=== PATIENT | female | born 1975 | race Caucasian/White ===

== ENCOUNTER 2016-12-15 06:20 | Inpatient (IN) | payer MEDICAID ==
[2016-12-15 06:20] VITALS: BMI 43.5
[2016-12-15] MEDS ORDERED: Sodium Chloride 0.9% 1,000 ML ONE ×2 (06:35→10:11)
[2016-12-15 06:53] LABS: BASO # 0.1 K/uL (0.0-0.2); BASO % 0.3 % (0.0-2.0); EOS % 0.2 % (0.0-4.0); HEMATOCRIT 41.7 % (34.0-47.0); LYMPH # 1.7 K/uL (1.0-4.3); LYMPH % 7.4 % (20.0-40.0); MEAN CELL VOLUME 91.5 fL (81.0-99.0); MEAN CORPUSCULAR HEMOGLOBIN 30.5 pg (27.0-31.0); MEAN CORPUSCULAR HGB CONC 33.4 g/dL (33.0-37.0); MONO # 1.4 K/uL (0.0-0.8); MONO % 6.2 % (0.0-10.0); NRBC % 0.1 % (0.0-2.0); PLATELET COUNT 347 K/uL (130-400); RED CELL DISTRIBUTION WIDTH 12.9 % (11.5-14.5)
[2016-12-15 06:57] LABS: WHITE BLOOD COUNT 23.1 K/uL (4.8-10.8)
[2016-12-15] MEDS ORDERED: Sodium Chloride 0.9% 1,000 ML IV ONE ×2 (07:02→17:57)
--- NOTE | 2016-12-15 07:06 | C.PDOC ---
History Of Present Illness 41F c/o RUQ pain constant since tuesday, no exac or reliev fx. says she had similar pain for which she was seen here before and that she was dx w gastritis. +vomiting no diarrhea. Time Seen by Provider: 12/15/16 07:05 Chief Complaint (Nursing): Abdominal Pain Past Medical History Vital Signs: Last Vital Signs Temp 99.3 F 12/15/16 06:29 Pulse 80 12/15/16 08:10 Resp 16 12/15/16 08:10 BP 114/55 L 12/15/16 08:10 Pulse Ox 100 12/15/16 09:25 - Medical History PMH: Arthritis (knees), Gastritis - [facility] Procedures BILAT TUBAL DIVISION NEC (01/12/14) LOCAL DESTR OVA LES NEC (01/12/14) LOW CERVICAL (01/12/14) Family History: States: Other Other Family History: nc - Social History Hx Tobacco Use: No Hx Alcohol Use: No Hx Substance Use: No - Immunization History Hx Tetanus Toxoid Vaccination: No Hx Influenza Vaccination: Yes Hx Pneumococcal Vaccination: No Review Of Systems Constitutional: Negative for: Fever, Weakness Eyes: Negative for: Vision Change Cardiovascular: Negative for: Chest Pain Respiratory: Negative for: Cough, Shortness of Breath Gastrointestinal: Positive for: Nausea, Vomiting, Abdominal Pain. Negative for : Diarrhea Genitourinary: Negative for: Dysuria Physical Exam - Physical Exam Appears: Non-toxic Skin: Warm, Dry Head: Atraumatic Eye(s): bilateral: PERRL Oral Mucosa: Moist Cardiovascular: Rhythm Regular Respiratory: No Decreased Breath Sounds, No Accessory Muscle Use Gastrointestinal/Abdominal: Bowel Sounds, Soft, Tenderness (epigastric pain RUQ) Neurological/Psych: Oriented x3, Other (no focal deficits) ED Course And Treatment - Laboratory Results Result Diagrams: 12/15/16 06:48 12/15/16 06:48 O2 Sat by Pulse Oximetry: 100 Medical Decision Making Medical Decision Makin bedside US shows gallbladder wall edema. kamran burnette surgical instrument mechanic, will come see the pt. [phone] kamran Licona 934 surgery to take to OR this afternoon TECHNIQUE: Sonographic evaluation of the right upper quadrant of the abdomen. FINDINGS: LIVER: Measures 23.7 cm in length. Normal echogenicity of the liver parenchyma. No mass. No intrahepatic bile duct dilatation. GALLBLADDER: Cholelithiasis. Thickened gallbladder wall up to 9 mm. Trace pericholecystic fluid. Positive sonographic Low's sign. Findings are suspicious for acute cholecystitis. COMMON BILE DUCT: Measures 5 mm. No stones. No dilatation. PANCREAS: Unremarkable as visualized. No mass. No ductal dilatation. RIGHT KIDNEY: Measures 12.6 cm in length. Normal echogenicity. No calculus, mass, or hydronephrosis. AORTA: No aneurysmal dilatation. IVC: Unremarkable. OTHER FINDINGS: None . IMPRESSION: Cholelithiasis. Findings suspicious for acute cholecystitis. Hepatomegaly. No evidence of biliary obstruction. Disposition - Disposition Referrals: Non [facility] Provider, [Primary Care Provider] - Disposition: HOSPITALIZED Disposition Time: 07:52 Condition: STABLE - Clinical Impression Clinical Impression: Acute cholecystitis
[2016-12-15 07:19] LABS: NEUTROPHIL 82 % (50-75); POTASSIUM 3.2 mmol/L (3.6-5.2); SODIUM 134 mmol/L (132-148); TOTAL CELLS COUNTED 100
[2016-12-15 07:21] LABS: BILIRUBIN,TOTAL 1.6 mg/dL (0.2-1.3); BLOOD UREA NITROGEN 7 mg/dL (7-17); CARBON DIOXIDE 24 mmol/L (22-30); GFR AFRICAN-AMERICAN > 60
[2016-12-15 07:22] LABS: ALKALINE PHOSPHATASE 80 U/L (38-126); CALCIUM 8.8 mg/dl (8.6-10.4); GLUCOSE,RANDOM 156 mg/dL (65-105)
[2016-12-15] MEDS ORDERED: Morphine 4 MG/ML VIAL ONE ×2 (07:23→08:06)
[2016-12-15 07:32] LABS: CHLORIDE 98 mmol/L (98-107)
[2016-12-15 07:35] LABS: TOTAL PROTEIN 7.8 g/dL (6.3-8.3)
[2016-12-15 07:36] LABS: ALT/SGPT 22 U/L (9-52); AST/SGOT 22 U/L (14-36)
[2016-12-15] MEDS ORDERED: Piperacillin/Tazobact 3.375 GM in Sodium Chloride 100 ML IVPB STA (07:47)
[2016-12-15] MEDS ORDERED: Piperacillin/Tazobact 3.375 gm 100 ML IVPB ONE ×2 (08:07→13:18)
--- NOTE | 2016-12-15 08:17 | CP.PCM.HP ---
History of Present Illness - History of Present Illness History of Present Illness: HPI: Patient is a 41 year old female, with PMHx of gastritis, who presents to [facility] ED for abdominal pain. She reports the pain began Tuesday, while she was visiting a friend's house. She initially dismissed her symptoms as "acid stomach" as she has a history of gastritis. When the pain did not improve throughout the day she went to [facility], where she states "they told me nothing." She was discharged with prescription for pepcid, and reported the pain improved on Tuesday. On Tuesday, the pain returned and she decided to come to the hospital because she was unable to eat. She describes the pain as a constant "dull ache with occasional stabbing", located in her RUQ and radiating to her right shoulder, that is 10/10 at worst on the pain severity scale. It has been made better by the morphine given in ED. She admits associated subjective fever, chills, nausea, and vomiting that began yesterday. She reports vomiting NBNB emesis overnight "more than 5 times." PMHx: gastritis (previous visits to [facility] ED) PSHx: C-sections (3, last in 2014, no complications) Fam Hx: Mother and father: alive; HTN) SHx: Denies ever using tobacco products, denies alcohol and illicit drug use; works as homemaker Allergies: NKA Present on Admission - Present on Admission Any Indicators Present on Admission: No Review of Systems - Constitutional Constitutional: Chills, Fever - EENT Eyes: absent: Blurred Vision, Change in Vision Ears: absent: Decreased Hearing - Cardiovascular Cardiovascular: absent: Chest Pain, Chest Pain at Rest, Dyspnea, Dyspnea on Exertion, Edema - Respiratory Respiratory: absent: Cough, Dyspnea - Gastrointestinal Gastrointestinal: Abdominal Pain (worst RUQ, radiation to right shoulder occasionally), Nausea, Vomiting (multiple, NBNB overnight; now retching). absent: Diarrhea - Genitourinary Genitourinary: absent: Dysuria Past Patient History - Infectious Disease Hx of Infectious Diseases: None - Past Social History Smoking Status: Never Smoked - MUSCULOSKELETAL/RHEUMATOLOGICAL Hx Arthritis: Yes (knees) - GASTROINTESTINAL Hx Gastritis: Yes - GENITOURINARY/GYNECOLOGICAL Hx Urinary Tract Infection: Yes - PSYCHIATRIC Hx Substance Use: No - SURGICAL HISTORY Hx Surgeries: Yes Hx Section: Yes (x2) - ANESTHESIA Hx Anesthesia: Yes Hx Anesthesia Reactions: No Meds Allergies/Adverse Reactions: Allergies Allergy/AdvReac Type Severity Reaction Status Date / Time No Known Allergies Allergy Verified 12/15/16 06:28 Physical Exam - Constitutional Appears: Non-toxic, No Acute Distress - Head Exam Head Exam: ATRAUMATIC, NORMAL INSPECTION, NORMOCEPHALIC - Eye Exam Eye Exam: EOMI Pupil Exam: PERRL - ENT Exam ENT Exam: Mucous Membranes Moist - Respiratory Exam Respiratory Exam: Clear to Auscultation Bilateral, NORMAL BREATHING PATTERN - Cardiovascular Exam Cardiovascular Exam: REGULAR RHYTHM, +S1, +S2 - GI/Abdominal Exam GI & Abdominal Exam: Guarding (RUQ (voluntary)), Soft, Tenderness (worst RQU, positive ramirez sign). absent: Distended, Firm - Extremities Exam Extremities exam: Positive for: normal inspection. Negative for: pedal edema - Back Exam Back exam: absent: CVA tenderness (L), CVA tenderness (R) Additional comments: negative abbie sign - Neurological Exam Neurological exam: Alert, Oriented x3 - Psychiatric Exam Psychiatric exam: Normal Affect, Normal Mood - Skin Skin Exam: Normal Color, Warm Results - Vital Signs Recent Vital Signs: Last Vital Signs Temp 99.3 F 12/15/16 06:29 Pulse 84 12/15/16 07:15 Resp 20 12/15/16 07:15 BP 115/58 L 12/15/16 07:15 Pulse Ox 100 12/15/16 08:00 - Labs Result Diagrams: 12/15/16 06:48 12/15/16 06:48 Labs: Laboratory Results - last 24 hr 12/15/16 12/15/16 06:48 06:48 WBC 23.1 H D RBC 4.56 Hgb 13.9 Hct 41.7 MCV 91.5 MCH 30.5 MCHC 33.4 RDW 12.9 Plt Count 347 MPV 8.0 Neut % (Auto) 85.9 H Lymph % (Auto) 7.4 L Armstrong % (Auto) 6.2 Eos % (Auto) 0.2 Baso % (Auto) 0.3 Neut # 19.9 H Lymph # 1.7 Armstrong # 1.4 H Eos # 0.0 Baso # 0.1 Neutrophils % (Manual) 82 H Band Neutrophils % 3 H Lymphocytes % (Manual) 8 L Monocytes % (Manual) 7 Platelet Estimate Normal Sodium 134 Potassium 3.2 L Chloride 98 Carbon Dioxide 24 Anion Gap 15 BUN 7 Creatinine 0.8 Est GFR ( Amer) > 60 Est GFR (Non-Af Amer) > 60 Random Glucose 156 H Calcium 8.8 Total Bilirubin 1.6 H AST 22 ALT 22 Alkaline Phosphatase 80 Total Protein 7.8 Albumin 3.9 Globulin 3.9 Albumin/Globulin Ratio 1.0 Lipase 73 Assessment & Plan - Assessment and Plan (Free Text) Assessment: 41 year old female, with PMHx of gastritis, who presents to ED for RUQ abdominal pain. US at bedside showing GB wall thickening. Official US report: concerning for acute cholecystitis. Lap Sharon scheduled for today (12/15/16) Plan: US GB: acute cholecystitis OR Lap Sharon for this afternoon Morphine for pain control IVF f/u Pre-op labs, EKG, CXR Surgical team Carmencita Hunt, PGY-1
[2016-12-15 08:34] LABS: RBC URINE 2 /hpf (0-3); URINE BILIRUBIN NEGATIVE (NEGATIVE); URINE BLOOD NEGATIVE (NEGATIVE); URINE COLOR Yellow (YELLOW); URINE GLUCOSE (UA) NORMAL (Normal); URINE KETONE 2+ mg/dL (NEGATIVE); URINE LEUKOCYTE ESTERASE NEG Leu/uL (Negative); URINE PROTEIN 1+ mg/dL (NEGATIVE); WBC URINE 2 /hpf (0-5)
--- NOTE | 2016-12-15 09:19 | US ---
HISTORY: ruq pain COMPARISON: None. TECHNIQUE: Sonographic evaluation of the right upper quadrant of the abdomen. FINDINGS: LIVER: Measures 23.7 cm in length. Normal echogenicity of the liver parenchyma. No mass. No intrahepatic bile duct dilatation. GALLBLADDER: Cholelithiasis. Thickened gallbladder wall up to 9 mm. Trace pericholecystic fluid. Positive sonographic Low's sign. Findings are suspicious for acute cholecystitis. COMMON BILE DUCT: Measures 5 mm. No stones. No dilatation. PANCREAS: Unremarkable as visualized. No mass. No ductal dilatation. RIGHT KIDNEY: Measures 12.6 cm in length. Normal echogenicity. No calculus, mass, or hydronephrosis. AORTA: No aneurysmal dilatation. IVC: Unremarkable. OTHER FINDINGS: None . IMPRESSION: Cholelithiasis. Findings suspicious for acute cholecystitis. Hepatomegaly. No evidence of biliary obstruction.
[2016-12-15] MEDS ORDERED: Morphine 4 MG/ML VIAL IVP PRN (09:36)
[2016-12-15] MEDS ORDERED: Sodium Chloride 0.9% 1,000 ML IV SCH (09:45)
[2016-12-15] MEDS ORDERED: HYDROmorphone 1 mg/ml ISec IVP STA (09:46)
[2016-12-15] MEDS ORDERED: HYDROmorphone 1 mg/ml ISec ONE (10:11)
[2016-12-15 12:02] LABS: INR 1.4
[2016-12-15] MEDS ORDERED: Propofol 10 mg/ml Inj (20 ML) ONE (13:12)
[2016-12-15] MEDS ORDERED: Midazolam 2 MG/2 ML VIAL ONE ×3 (13:13→18:36)
[2016-12-15] MEDS ORDERED: Lactated Ringer's 1,000 ML IV ONE ×7 (13:20→19:43)
[2016-12-15] MEDS: Piperacillin/Tazobact 3.375 GM in Sodium Chloride 100 ML IVPB SCH ×2 (13:25→20:30)
[2016-12-15] MEDS ORDERED: HYDROmorphone 0.5 mg/0.5 ml ISec IVP PRN (13:34)
--- NOTE | 2016-12-15 15:10 | PCM.SURG1 ---
Surgeon's Initial Post Op Note - Surgeon's Notes Surgeon: Livan Employee Communications Specialist: Charlie PGY2 Type of Anesthesia: General Endo Pre-Operative Diagnosis: Cholecystitis Operative Findings: acutely inflamed gallbladder Post-Operative Diagnosis: same Operation Performed: laparoscopic cholecystectomy Specimen/Specimens Removed: gallbladder Estimated Blood Loss: EBL {In ML}: 50 Blood Products Given: N/A Drains Used: No Drains Post-Op Condition: Good Date of Surgery/Procedure: 12/15/16 Time of Surgery/Procedure: 15:10
[2016-12-15] MEDS ORDERED: Oxycodone/Acetaminophen 5/325 mg Tab PO PRN (15:14)
[2016-12-15 17:18] LABS: BASO % 0.1 % (0.0-2.0); EOS % 0.1 % (0.0-4.0); HEMATOCRIT 28.7 % (34.0-47.0); LYMPH # 0.9 K/uL (1.0-4.3); LYMPH % 5.5 % (20.0-40.0); MEAN CELL VOLUME 92.8 fL (81.0-99.0); MEAN CORPUSCULAR HEMOGLOBIN 31.7 pg (27.0-31.0); MEAN CORPUSCULAR HGB CONC 34.2 g/dL (33.0-37.0); MEAN PLATELET VOLUME 7.9 fL (7.2-11.7); MONO # 0.6 K/uL (0.0-0.8); MONO % 3.6 % (0.0-10.0); PLATELET COUNT 303 K/uL (130-400); RED CELL DISTRIBUTION WIDTH 12.9 % (11.5-14.5); WHITE BLOOD COUNT 16.2 K/uL (4.8-10.8)
[2016-12-15 17:19] LABS: CHLORIDE 100 mmol/L (98-107)
[2016-12-15 17:20] LABS: POTASSIUM 3.8 mmol/L (3.6-5.2); SODIUM 133 mmol/L (132-148)
[2016-12-15 17:22] LABS: ALB/GLOB RATIO 0.9 (1.0-2.1); AST/SGOT 33 U/L (14-36); BLOOD UREA NITROGEN 10 mg/dL (7-17); CARBON DIOXIDE 26 mmol/L (22-30); GFR AFRICAN-AMERICAN > 60; TOTAL PROTEIN 5.8 g/dL (6.3-8.3)
[2016-12-15 17:23] LABS: ALKALINE PHOSPHATASE 57 U/L (38-126); ALT/SGPT 32 U/L (9-52); CALCIUM 7.2 mg/dl (8.6-10.4); GLUCOSE,RANDOM 175 mg/dL (65-105)
[2016-12-15 18:03] LABS: TOTAL CELLS COUNTED 100
[2016-12-15 18:04] LABS: NEUTROPHIL 88 % (50-75)
[2016-12-15] MEDS ORDERED: Etomidate 20 mg/10ml Inj IV ONE (18:23)
[2016-12-15] MEDS ORDERED: Ketamine 50 mg/ml Inj (10 ml) ONE (18:23)
[2016-12-15] MEDS ORDERED: Sodium Chloride 0.9% 500 ML IV ONE ×4 (18:30→18:40)
[2016-12-15 18:54] LABS: URINE BACTERIA OCC (<OCC); URINE BILIRUBIN NEGATIVE (NEGATIVE); URINE BLOOD NEGATIVE (NEGATIVE); URINE COLOR Amber (YELLOW); URINE GLUCOSE (UA) 1+ mg/dL (Normal); URINE KETONE TRACE mg/dL (NEGATIVE); URINE LEUKOCYTE ESTERASE NEG Leu/uL (Negative); URINE PROTEIN 2+ mg/dL (NEGATIVE); URINE UROBILINOGEN NORMAL mg/dL (0.2-1.0)
--- NOTE | 2016-12-15 20:28 | PCM.SURG1 ---
Surgeon's Initial Post Op Note - Surgeon's Notes Surgeon: Livan Early Childhood Director: Charlie PGY2, Sally PGY1, Eliazar PGY2 Type of Anesthesia: General Endo Pre-Operative Diagnosis: Post-operative bleeding Operative Findings: hemoperitoneum, 3L of clot evacuated from abd, no definite source of bleeding identified Post-Operative Diagnosis: hemoperitoneum Operation Performed: ex-lap, evacuation of clot, ligation of port sites Specimen/Specimens Removed: none Estimated Blood Loss: EBL {In ML}: 10 Blood Products Given: PRBC (4 Units), FFP (2 Units and 1 Unit cryopercipitate) Drains Used: Alejandro Post-Op Condition: Fair Date of Surgery/Procedure: 12/15/16 Time of Surgery/Procedure: 20:30
[2016-12-15 20:55] LABS: DRAW SITE ALINE
[2016-12-15] MEDS ORDERED: Albumin Human 25% (12.5 gm/50 ml) IV ONE (20:58)
[2016-12-15 21:09] LABS: BASO % 0.1 % (0.0-2.0); HEMATOCRIT 27.8 % (34.0-47.0); LYMPH # 0.8 K/uL (1.0-4.3); LYMPH % 6.8 % (20.0-40.0); MEAN CORPUSCULAR HEMOGLOBIN 30.1 pg (27.0-31.0); MEAN CORPUSCULAR HGB CONC 33.5 g/dL (33.0-37.0); MEAN PLATELET VOLUME 7.9 fL (7.2-11.7); MONO # 0.5 K/uL (0.0-0.8); MONO % 3.9 % (0.0-10.0); RED CELL DISTRIBUTION WIDTH 15.3 % (11.5-14.5); WHITE BLOOD COUNT 11.9 K/uL (4.8-10.8)
[2016-12-15 21:11] LABS: MEAN CELL VOLUME 89.9 fL (81.0-99.0)
[2016-12-15 21:13] LABS: CHLORIDE 102 mmol/L (98-107); INR 1.6; POTASSIUM 3.6 mmol/L (3.6-5.2); SODIUM 133 mmol/L (132-148)
[2016-12-15 21:15] LABS: GFR AFRICAN-AMERICAN > 60
[2016-12-15 21:16] LABS: ALB/GLOB RATIO 0.9 (1.0-2.1); ALKALINE PHOSPHATASE 38 U/L (38-126); ALT/SGPT 52 U/L (9-52); AST/SGOT 68 U/L (14-36); BILIRUBIN,TOTAL 3.3 mg/dL (0.2-1.3); BLOOD UREA NITROGEN 10 mg/dL (7-17); CARBON DIOXIDE 23 mmol/L (22-30); GLUCOSE,RANDOM 180 mg/dL (65-105); PHOSPHOROUS 2.8 mg/dL (2.5-4.5); TOTAL PROTEIN 4.5 g/dL (6.3-8.3)
[2016-12-15 21:17] LABS: CALCIUM 6.4 mg/dl (8.6-10.4); MAGNESIUM 1.9 mg/dL (1.6-2.3)
--- NOTE | 2016-12-15 21:23 | OP ---
PROCEDURE DATE: 12/15/2016 SURGEON: Dr. Licona. CHILD DAY CARE TEACHER: Dr. Guerra, Dr. Zavala and Dr. Perea. ANESTHESIA: General, Dr. Jackson. PREOPERATIVE DIAGNOSIS: Hemoperitoneum status post laparoscopic cholecystectomy. POSTOPERATIVE DIAGNOSIS: Hemoperitoneum status post laparoscopic cholecystectomy. PROCEDURE: Exploratory laparotomy, evacuation of clot, suture ligation of port site. DESCRIPTION OF OPERATION: With the patient in the supine position under adequate general anesthesia, the abdomen was prepped and draped in the usual sterile manner. The patient was recently status pos t laparoscopic cholecystectomy and became acutely hypotensive approximately 2 hours after coming to [facility] recovery room, whereupon she was brought back to the operating room. An upper midline incision wa s made, taken down through the subcutaneous tissue and the peritoneum was entered in the midline. Bl eeding from the edge of the midline incision was suture ligated with a 0 Vicryl suture. There was no svitlana to be a large amount of clots in all quadrants of the abdomen and clot and liquified blood were e vacuated. A total of approximately 3 liters of clot and liquid blood. When this was completed, init ially, the abdominal port site was examined as there was some suspicion that bleeding had occurred th ere during removal of the gallbladder. No acute bleeding was noted at that site. The area of the ri ght upper quadrant liver bed and cystic vessels were identified and no acute bleeding was identified in that area as well. The epigastric port site also was examined. No acute bleeding was identified, although there was a small amount of swelling and ecchymosis in the falciform ligament and the epiga stric port site was suture ligated with a [id number] suture from within the peritoneal cavity us ing a 0 Vicryl suture as well. When this had been completed, all quadrants of the abdomen were caref ully examined including the liver bed, the liver edges, the omentum that had been divided or peeled a way to expose the gallbladder during the earlier cholecystectomy and no definite source of bleeding w as identified. The patient at this point had been fully resuscitated by anesthesia with blood pressu res in the 110 - 120 range and all quadrants were again inspected and again no definite source of ble eding was identified. At this point, Surgicel was placed in the area of the liver bed and a 19 Alejandro drain was placed in the right gutter and extended up into the subhepatic space and brought out throu gh one of the lateral port sites. The abdomen was then closed with running suture of double stranded #1 PDS. The skin was closed with dru. Dry sterile dressings were applied. The patient tolerat ed the procedure well and transferred to the intensive care unit in fair, but stable condition. There was minimal acute blood loss during the surgery but an estimated evacuation of 3 liters of hemo peritoneum and clot and the patient received a total of 4 units of packed red blood cells in the pre and intraoperative period as well as 2 units of fresh frozen plasma and 1 unit of cryoprecipitate. Momo Licona MD cc: 58 TT: 12/15/2016 21:22:55 jn
[2016-12-15] MEDS: Lactated Ringer's 1,000 ML IV SCH (21:36)
--- NOTE | 2016-12-15 21:46 | OP ---
PROCEDURE DATE: 12/15/2016 SURGEON: Dr. Licona. MILITARY COOK: Dr. Vega. ANESTHESIA: General, ELENA Pressley and Dr. Smith. PREOPERATIVE DIAGNOSIS: Cholecystitis. POSTOPERATIVE DIAGNOSIS: Acute cholecystitis. PROCEDURE: Laparoscopic cholecystectomy. DESCRIPTION OF OPERATION: With the patient in the supine position under adequate general anesthesia, the abdomen was prepped and draped in the usual sterile manner. Veress needle puncture was performe d at the umbilicus with insufflation to 15 cm water pressure of CO2 and a 10 mm laparoscopic trocar w as inserted via an infraumbilical incision. Under direct vision, additional trocars were inserted in the epigastrium and right costal margin. The gallbladder was visualized. It was noted to be disten ded and thickened with adherent omentum covering most of the surface of the gallbladder. The gallbla dder was aspirated of 60 mL of dark brown bile, allowing a portion of the fundus to be grasped and el evated and the adherent omentum was peeled away and cut from areas where it was adhered to the liver, primarily peeled off the surface of the gallbladder down to expose the infundibulum. The infundibul um was grasped and retracted laterally and the cystic artery was dissected and cleared down toward th e junction with the common bile duct. The cystic duct was fully cleared anteriorly and posteriorly o f a very thickened overlying peritoneum and then triply clipped and divided closer to the gallbladder . Anterior and posterior branches of the cystic artery were identified in addition what appeared to be a large right hepatic artery was noted passing beneath the area of the gallbladder and that was ca refully preserved. The gallbladder was dissected free of the liver bed using electrocautery. The li napoleon bed was markedly edematous consistent with very acute cholecystitis. The liver bed was examined for hemostasis and the dissection was completed. The gallbladder was placed in a specimen retrieval bag and removed via the umbilical port site, which was enlarged to accommodate the large stones and t hickened gallbladder. The right upper quadrant was irrigated and suctioned. The pneumoperitoneum wa s released and the trocars were removed. The umbilical port site was closed transversely with a runn ing suture of 0 Vicryl to approximate the fascia and all incisions were closed with 4-0 Monocryl subc uticular sutures and Steri-Strips. Dry sterile dressings were applied. The patient tolerated the pr ocedure well and transferred to recovery room in stable condition. Estimated blood loss for the proc edure was 50 mL. Momo Licona MD cc: 58 TT: 12/15/2016 21:46:04 mn
[2016-12-15 21:52] LABS: THYROID STIMULATING HORMONE 0.91 mIU/L (0.46-4.68)
--- NOTE | 2016-12-15 22:31 | CP.PCM.CON ---
History of Present Illness - History of Present Illness History of Present Illness: Chief complaint: Postoperative History present illness: 41-year-old female history of gastritis admitted to the hospital with acute abdominal pain. Patient was seen by surgery today. Following that patient was diagnosed with the possible acute cholecystitis. Patient was taken to the operating room, initially underwent laparoscopic cholecystectomy. After the surgery patient was observed in the PACU, with intravenous patient started becoming severely hypertensive, and the blood count dropped from 13-to 9. Patient was immediately taken to the operating room, because of failure to improve with the resuscitation. In the overall patient had exploration, at least 3lts of blood clots removed, patient was given 4 units of PRBC, 2 FFP and cryo-IV fluids. Patient was brought to the ICU after extubation. During the operating room urine output was on the low side. Patient has a line. Currently the blood pressure is on the low side, 107/55. Patient is awake, responding, no abdominal pain at this time, no vomiting noted. Patient moving all 4 extremities. She's not in any distress at this time Past medical history: Gastritis Surgical history Family history noncontributory Surgical history Social history no drugs Allergy no known drug allergy Review of system: Patient is currently awake and responding temperature is improving abdominal pain minimally noted patient is pale looking but comfortable at this time Vital signs reviewed No neck vein distention noted Chest good air entry bilaterally, no wheezing or rales noted CVS regular heart sound, no murmur noted Postoperative abdomen drainage for your okay Extremities no pedal edema [employer] TECHNOLOGIST alert awake oriented 3, no functional neurological deficit ABG, repeat labs reviewed Hemoglobin is stable. INR is 1.6. Patient is normal Assessment and recommendation: 41-year-old female with history of gastritis admitted with the status post a cholecystectomy, hemorrhagic shock complicated. Status post a exploration revision. During the exploration and there was no clear bleeding episode identified but extensive inspection could not found any bleeding but there was no active bleeding after resuscitation.. Patient now slowly improving. Lactic acid is normal, urine output is improving. Given the elevated INR we'll do 2 more units of FFP. And gently hydrate the patient. Close monitoring. Evaluate for drop in hemoglobin. Spoke to the surgery. Family was at bedside. Past Patient History - Infectious Disease Hx of Infectious Diseases: None - Past Medical History & Family History Past Medical History?: Yes - Past Social History Smoking Status: Never Smoked - MUSCULOSKELETAL/RHEUMATOLOGICAL Hx Arthritis: Yes (knees) Hx Falls: No - GASTROINTESTINAL Hx Gastritis: Yes - GENITOURINARY/GYNECOLOGICAL Hx Urinary Tract Infection: Yes - PSYCHIATRIC Hx Substance Use: No - SURGICAL HISTORY Hx Surgeries: Yes Hx Section: Yes (x2) - ANESTHESIA Hx Anesthesia: Yes Hx Anesthesia Reactions: No Meds Allergies/Adverse Reactions: Allergies Allergy/AdvReac Type Severity Reaction Status Date / Time No Known Allergies Allergy Verified 12/15/16 06:28 - Medications Medications: Current Medications Docusate Sodium (Colace) 100 mg PO TID [facility] Last Admin: 12/15/16 21:22 Dose: Not Given Hydromorphone HCl (Dilaudid) 0.5 mg IVP Q3 PRN PRN Reason: Pain, moderate (4-7) Piperacillin Sod/Tazobactam (Sod 3.375 gm/ Sodium Chloride) 100 mls @ 200 mls/ hr IVPB Q6H [facility] Last Admin: 12/15/16 20:30 Dose: Not Given Lactated Ringer's (Lactated Ringer's) 1,000 mls @ 250 mls/hr IV .Q4H [facility] Stop: 12/16/16 04:59 Last Admin: 12/15/16 21:36 Dose: 250 mls/hr Ondansetron HCl (Zofran Inj) 4 mg IVP Q4 PRN PRN Reason: Nausea/Vomiting Pantoprazole Sodium (Protonix Inj) 40 mg IVP DAILY [facility] Pneumococcal Polyvalent Vaccine (Pneumovax 23 Vaccine) 0.5 ml IM .ONCE ONE Stop: 12/17/16 14:25 Results - Vital Signs Recent Vital Signs: Last Vital Signs Temp 99 F 12/15/16 15:10 Pulse 94 H 12/15/16 18:20 Resp 19 12/15/16 18:20 BP 87/31 L 12/15/16 18:20 Pulse Ox 97 12/15/16 18:20 - Labs Result Diagrams: 12/15/16 20:58 12/15/16 20:58 Labs: Laboratory Results - last 24 hr 12/15/16 12/15/16 12/15/16 11:43 17:09 17:09 WBC 16.2 H RBC 3.10 L Hgb 9.8 L D Hct 28.7 L MCV 92.8 MCH 31.7 H MCHC 34.2 RDW 12.9 Plt Count 303 MPV 7.9 Neut % (Auto) 90.7 H Lymph % (Auto) 5.5 L [place] % (Auto) 3.6 Eos % (Auto) 0.1 Baso % (Auto) 0.1 Neut # 14.7 H Lymph # 0.9 L [place] # 0.6 Eos # 0.0 Baso # 0.0 Neutrophils % (Manual) 88 H Band Neutrophils % 1 Lymphocytes % (Manual) 6 L Monocytes % (Manual) 5 Platelet Estimate Normal RBC Morphology Normal PT 15.9 H INR 1.4 APTT 31 Puncture Site pCO2 pO2 HCO3 ABG pH ABG Total CO2 ABG O2 Saturation ABG Base Excess Benitez Test ABG Potassium A-a O2 Difference Respiratory Index Glucose Lactate FiO2 Sodium Potassium Chloride Carbon Dioxide Anion Gap BUN Creatinine Est GFR ( Amer) Est GFR (Non-Af Amer) Random Glucose Calcium Phosphorus Magnesium Total Bilirubin AST ALT Alkaline Phosphatase Total Protein Albumin Globulin Albumin/Globulin Ratio TSH 3rd Generation Plasma Cortisol PM Arterial Blood Potassium Urine Color Urine Clarity Urine pH Ur Specific Bandy Urine Protein Urine Glucose (UA) Urine Ketones Urine Blood Urine Nitrate Urine Bilirubin Urine Urobilinogen Ur Leukocyte Esterase Ur Squamous Epith Cells Urine Bacteria Blood Type A POSITIVE Antibody Screen Negative 12/15/16 12/15/16 12/15/16 17:09 17:50 18:33 WBC RBC Hgb Hct MCV MCH MCHC RDW Plt Count MPV Neut % (Auto) Lymph % (Auto) [place] % (Auto) Eos % (Auto) Baso % (Auto) Neut # Lymph # [place] # Eos # Baso # Neutrophils % (Manual) Band Neutrophils % Lymphocytes % (Manual) Monocytes % (Manual) Platelet Estimate RBC Morphology PT INR APTT Puncture Site Laline pCO2 37 pO2 143 H HCO3 24.8 ABG pH 7.42 ABG Total CO2 25.1 ABG O2 Saturation 100.2 H ABG Base Excess -0.2 Benitez Test Na ABG Potassium 3.7 A-a O2 Difference 67.0 Respiratory Index 0.5 Glucose 157 H Lactate 2.1 FiO2 36.0 Sodium 133 135.0 Potassium 3.8 Chloride 100 109.0 H Carbon Dioxide 26 Anion Gap 10 BUN 10 Creatinine 1.0 Est GFR ( Amer) > 60 Est GFR (Non-Af Amer) > 60 Random Glucose 175 H Calcium 7.2 L Phosphorus Magnesium Total Bilirubin 2.0 H AST 33 ALT 32 Alkaline Phosphatase 57 Total Protein 5.8 L Albumin 2.7 L D Globulin 3.1 Albumin/Globulin Ratio 0.9 L TSH 3rd Generation Plasma Cortisol PM Arterial Blood Potassium 3.7 Urine Color Colette Urine Clarity Hazy Urine pH 5.0 Ur Specific Bandy 1.032 H Urine Protein 2+ H Urine Glucose (UA) 1+ Urine Ketones Trace Urine Blood Negative Urine Nitrate Negative Urine Bilirubin Negative Urine Urobilinogen Normal Ur Leukocyte Esterase Neg Ur Squamous Epith Cells 2 Urine Bacteria Occ H Blood Type Antibody Screen 12/15/16 12/15/16 12/15/16 20:50 20:58 20:58 WBC 11.9 H RBC 3.09 L Hgb 9.3 L Hct 27.8 L MCV 89.9 D MCH 30.1 MCHC 33.5 RDW 15.3 H Plt Count 151 D MPV 7.9 Neut % (Auto) 89.2 H Lymph % (Auto) 6.8 L [place] % (Auto) 3.9 Eos % (Auto) 0.0 Baso % (Auto) 0.1 Neut # 10.7 H Lymph # 0.8 L [place] # 0.5 Eos # 0.0 Baso # 0.0 Neutrophils % (Manual) Band Neutrophils % Lymphocytes % (Manual) Monocytes % (Manual) Platelet Estimate RBC Morphology PT INR APTT Puncture Site Phylicia pCO2 39 pO2 64 L HCO3 23.4 ABG pH 7.38 ABG Total CO2 24.3 ABG O2 Saturation 97.5 ABG Base Excess -1.8 Benitez Test Na ABG Potassium 3.5 L A-a O2 Difference 37.0 Respiratory Index 0.6 Glucose 188 H Lactate 1.9 FiO2 21.0 Sodium 135.0 133 Potassium 3.6 Chloride 108.0 H 102 Carbon Dioxide 23 Anion Gap 11 BUN 10 Creatinine 0.8 Est GFR ( Amer) > 60 Est GFR (Non-Af Amer) > 60 Random Glucose 180 H Calcium 6.4 L Phosphorus 2.8 Magnesium 1.9 Total Bilirubin 3.3 H AST 68 H D ALT 52 D Alkaline Phosphatase 38 D Total Protein 4.5 L Albumin 2.1 L D Globulin 2.4 Albumin/Globulin Ratio 0.9 L TSH 3rd Generation 0.91 Plasma Cortisol PM 22.1 H Arterial Blood Potassium 3.5 L Urine Color Urine Clarity Urine pH Ur Specific Bandy Urine Protein Urine Glucose (UA) Urine Ketones Urine Blood Urine Nitrate Urine Bilirubin Urine Urobilinogen Ur Leukocyte Esterase Ur Squamous Epith Cells Urine Bacteria Blood Type Antibody Screen 12/15/16 20:58 WBC RBC Hgb Hct MCV MCH MCHC RDW Plt Count MPV Neut % (Auto) Lymph % (Auto) [place] % (Auto) Eos % (Auto) Baso % (Auto) Neut # Lymph # [place] # Eos # Baso # Neutrophils % (Manual) Band Neutrophils % Lymphocytes % (Manual) Monocytes % (Manual) Platelet Estimate RBC Morphology PT 18.2 H INR 1.6 APTT 30 Puncture Site pCO2 pO2 HCO3 ABG pH ABG Total CO2 ABG O2 Saturation ABG Base Excess Benitez Test ABG Potassium A-a O2 Difference Respiratory Index Glucose Lactate FiO2 Sodium Potassium Chloride Carbon Dioxide Anion Gap BUN Creatinine Est GFR ( Amer) Est GFR (Non-Af Amer) Random Glucose Calcium Phosphorus Magnesium Total Bilirubin AST ALT Alkaline Phosphatase Total Protein Albumin Globulin Albumin/Globulin Ratio TSH 3rd Generation Plasma Cortisol PM Arterial Blood Potassium Urine Color Urine Clarity Urine pH Ur Specific Bandy Urine Protein Urine Glucose (UA) Urine Ketones Urine Blood Urine Nitrate Urine Bilirubin Urine Urobilinogen Ur Leukocyte Esterase Ur Squamous Epith Cells Urine Bacteria Blood Type Antibody Screen
[2016-12-16] MEDS: Lactated Ringer's 1,000 ML IV SCH ×5 (00:46→23:50)
[2016-12-16] MEDS: Piperacillin/Tazobact 3.375 GM in Sodium Chloride 100 ML IVPB SCH ×4 (02:04→20:58)
[2016-12-16 06:16] LABS: BASO % 0.3 % (0.0-2.0); HEMATOCRIT 22.8 % (34.0-47.0); LYMPH # 1.3 K/uL (1.0-4.3); LYMPH % 12.2 % (20.0-40.0); MEAN CELL VOLUME 89.5 fL (81.0-99.0); MEAN CORPUSCULAR HEMOGLOBIN 30.5 pg (27.0-31.0); MEAN CORPUSCULAR HGB CONC 34.1 g/dL (33.0-37.0); MEAN PLATELET VOLUME 8.8 fL (7.2-11.7); MONO # 0.8 K/uL (0.0-0.8); MONO % 7.5 % (0.0-10.0); RED CELL DISTRIBUTION WIDTH 15.5 % (11.5-14.5); WHITE BLOOD COUNT 10.5 K/uL (4.8-10.8)
[2016-12-16 06:24] LABS: INR 1.4
[2016-12-16 06:36] LABS: CHLORIDE 102 mmol/L (98-107); POTASSIUM 3.6 mmol/L (3.6-5.2); SODIUM 134 mmol/L (132-148)
[2016-12-16 06:38] LABS: BILIRUBIN,TOTAL 2.6 mg/dL (0.2-1.3); CARBON DIOXIDE 26 mmol/L (22-30); GFR AFRICAN-AMERICAN > 60
[2016-12-16 06:39] LABS: ALKALINE PHOSPHATASE 44 U/L (38-126); ALT/SGPT 45 U/L (9-52); AST/SGOT 50 U/L (14-36); BLOOD UREA NITROGEN 11 mg/dL (7-17); GLUCOSE,RANDOM 115 mg/dL (65-105); TOTAL PROTEIN 4.9 g/dL (6.3-8.3)
[2016-12-16] MEDS: HYDROmorphone 0.5 mg/0.5 ml ISec IVP PRN ×3 (07:02→17:48)
[2016-12-16] MEDS ORDERED: Phytonadione 10 mg/ml Inj (Adult) IV STA (10:25)
--- NOTE | 2016-12-16 10:32 | CP.PCM.PN ---
Subjective - Date & Time of Evaluation Date of Evaluation: 12/16/16 Time of Evaluation: 10:28 - Subjective Subjective: Surgery: Dr. Licona Pt seen and examined. Resting comfortably in bed. Overnight pt received a total of 4 Units PRBCs, 4 Units FFP, and 1 Unit cryopercipitate. Vitals have improved and are stable. Immediate CBC post-op showed stable hgb of 9.8 w. slight decrease to 7.3 this AM. Pt is doing well. She states that her pain is controlled. She denies N/V. No F/C. Objective - Vital Signs/Intake and Output Vital Signs (last 24 hours): Temp Pulse Resp BP Pulse Ox 98.7 F 96 H 16 107/71 99 12/16/16 08:00 12/16/16 10:00 12/16/16 10:00 12/16/16 10:00 12/16/16 10:00 Intake and Output: 12/16/16 12/16/16 06:59 18:59 Intake Total 3267 600 Output Total 725 360 Balance 2542 240 - Medications Medications: Current Medications Docusate Sodium (Colace) 100 mg PO TID [facility] Last Admin: 12/15/16 21:22 Dose: Not Given Hydromorphone HCl (Dilaudid) 0.5 mg IVP Q3 PRN PRN Reason: Pain, moderate (4-7) Last Admin: 12/16/16 10:12 Dose: 0.5 mg Piperacillin Sod/Tazobactam (Sod 3.375 gm/ Sodium Chloride) 100 mls @ 200 mls/ hr IVPB Q6H [facility] Last Admin: 12/16/16 08:07 Dose: 200 mls/hr Lactated Ringer's (Lactated Ringer's) 1,000 mls @ 125 mls/hr IV .Q8H [facility] Last Admin: 12/16/16 08:08 Dose: 125 mls/hr Ondansetron HCl (Zofran Inj) 4 mg IVP Q4 PRN PRN Reason: Nausea/Vomiting Pantoprazole Sodium (Protonix Inj) 40 mg IVP DAILY [facility] Last Admin: 12/16/16 10:12 Dose: 40 mg Phytonadione (Vitamin K Inj) 10 mg IV STAT STA Stop: 12/16/16 10:26 Pneumococcal Polyvalent Vaccine (Pneumovax 23 Vaccine) 0.5 ml IM .ONCE ONE Stop: 12/17/16 14:25 - Labs Labs: 12/16/16 06:09 12/16/16 06:09 PT 16.2 SECONDS (9.7-12.2) H 12/16/16 06:09 INR 1.4 12/16/16 06:09 APTT 23 SECONDS (21-34) D 12/16/16 06:09 - Constitutional Appears: Non-toxic, No Acute Distress - Head Exam Head Exam: ATRAUMATIC, NORMOCEPHALIC - Eye Exam Eye Exam: EOMI - ENT Exam ENT Exam: Mucous Membranes Moist - Neck Exam Neck Exam: Full ROM - Respiratory Exam Respiratory Exam: NORMAL BREATHING PATTERN. absent: Accessory Muscle Use, Respiratory Distress - GI/Abdominal Exam GI & Abdominal Exam: Soft, Tenderness (mild alec-incisional ). absent: Distended, Firm, Guarding, Rigid, Rebound Additional comments: Dressing in place, C/D/I R mid abd alejandro in place - Extremities Exam Extremities Exam: absent: Calf Tenderness, Pedal Edema - Neurological Exam Neurological Exam: Alert, Awake, Oriented x3 Assessment and Plan - Assessment and Plan (Free Text) Assessment: 41F w. cholecystitis s/p lap nova w. subsequent ex-lap for post-operative bleeding, POD#1 -AM Hgb 7.8, will repeat CBC/coags this afternoon, transfuse PRN -INR 1.4, will give IV vit K -Alejandro: 40cc/12 hr sanguinous, will continue to monitor -Minimal NGT output, will D/C and start CLD, monitor bowel FXN and ADAT -Per nursing, [place] output 1100cc since surgery, will D/C -Recommend keep A-line until no further decrease in H/H -continue w. abx -hold anticoagulation -OOB and IS use -will consult PT -will continue to follow closely -d/w attending Charlie PGY2
--- NOTE | 2016-12-16 16:10 | CP.CCUPN ---
<Rolly Dean - Last Filed: 12/16/16 16:05> CCU Subjective - Physician Review Subjective (Free Text): 12/16/16 16:05 PGY-1 ICU progress note Pt seen and examined at bedside. Pt up and OOB to chair. Complains of abdominal pain. Denies chest pain, sob, nausea, vomiting. Admits to dizziness when transferring. Critical Care Time Spent (in minutes): 35 CCU Objective - Vital Signs / Intake & Output Vital Signs (Last 4 hours): Vital Signs Pulse Resp BP Pulse Ox 12/16/16 13:00 82 16 106/81 100 Intake and Output (Last 8hrs): Intake & Output 12/16/16 12/16/16 12/16/16 06:59 14:59 22:59 Intake Total 2040 975 Output Total 575 485 Balance 1465 490 Intake: Intake, IV Amount 2040 975 right AC 1940 975 right AC side port 100 Oral 0 0 Output: Drainage 40 right abdomen 40 Urine 535 485 Urethral ([place]) 535 485 Other: # Bowel Movements 0 0 - Physical Exam Head: Positive for: Atraumatic, Normocephalic Pupils: Positive for: PERRL Mouth: Positive for: Moist Mucous Membranes Respiratory/Chest: Positive for: Clear to Auscultation, Good Air Exchange Cardiovascular: Positive for: Normal S1, S2 Abdomen: Positive for: Tenderness, Normal Bowel Sounds, Other (bandages in place , C/D/I). Negative for: Distention Upper Extremity: Positive for: NORMAL PULSES Lower Extremity: Positive for: NORMAL PULSES Neurological: Positive for: Speech Normal Skin: Positive for: Warm, Dry Psychiatric: Positive for: Alert, Oriented x 3 - Medications Active Medications: Active Medications Generic Name Dose Route Start Last Admin Trade Name Freq PRN Reason Stop Dose Admin Docusate Sodium 100 mg 12/15/16 18:00 12/16/16 14:05 Colace PO 100 mg TID JACK Administration Hydromorphone HCl 0.5 mg 12/15/16 20:32 12/16/16 10:12 Dilaudid IVP 0.5 mg Q3 PRN Administration Pain, moderate (4-7) Piperacillin Sod/Tazobactam 100 mls @ 200 mls/hr 12/15/16 14:00 12/16/16 08: 07 Sod 3.375 gm/ Sodium Chloride IVPB 12/16/16 23:59 200 mls/hr Q6H JACK Administration Lactated Ringer's 1,000 mls @ 125 mls/hr 12/16/16 07:10 12/16/16 08:08 Lactated Ringer's IV 125 mls/hr .Q8H JACK Administration Ondansetron HCl 4 mg 12/15/16 09:37 Zofran Inj IVP Q4 PRN Nausea/Vomiting Pantoprazole Sodium 40 mg 12/16/16 10:00 12/16/16 10:12 Protonix Inj IVP 40 mg DAILY JACK Administration Pneumococcal Polyvalent Vaccine 0.5 ml 12/17/16 14:24 Pneumovax 23 Vaccine IM 12/17/16 14:25 .ONCE ONE - Patient Studies Lab Studies: Lab Studies 12/16/16 12/16/16 12/16/16 Range/Units 06:09 06:09 06:09 WBC 10.5 (4.8-10.8) K/uL RBC 2.55 L (3.80-5.20) Mil/uL Hgb 7.8 L (11.0-16.0) g/dL Hct 22.8 L (34.0-47.0) % MCV 89.5 (81.0-99.0) fL MCH 30.5 (27.0-31.0) pg MCHC 34.1 (33.0-37.0) g/dL RDW 15.5 H (11.5-14.5) % Plt Count 153 (130-400) K/uL MPV 8.8 (7.2-11.7) fL Neut % (Auto) 80.0 H (50.0-75.0) % Lymph % (Auto) 12.2 L (20.0-40.0) % Foster % (Auto) 7.5 (0.0-10.0) % Eos % (Auto) 0.0 (0.0-4.0) % Baso % (Auto) 0.3 (0.0-2.0) % Neut # 8.4 H (1.8-7.0) K/uL Lymph # 1.3 (1.0-4.3) K/uL Foster # 0.8 (0.0-0.8) K/uL Eos # 0.0 (0.0-0.7) K/uL Baso # 0.0 (0.0-0.2) K/uL Neutrophils % (Manual) (50-75) % Band Neutrophils % (0-2) % Lymphocytes % (Manual) (20-40) % Monocytes % (Manual) (0-10) % Platelet Estimate (NORMAL) RBC Morphology PT 16.2 H (9.7-12.2) SECONDS INR 1.4 APTT 23 D (21-34) SECONDS Puncture Site pCO2 (35-45) mm/Hg pO2 (80-100) mm/Hg HCO3 (21-28) mmol/L ABG pH (7.35-7.45) ABG Total CO2 (22-28) mmol/L ABG O2 Saturation (95-98) % ABG Base Excess (-2.0-3.0) mmol/L Benitez Test ABG Potassium (3.6-5.2) mmol/L A-a O2 Difference mm/Hg Respiratory Index Glucose (65-105) mg/dl Lactate (0.7-2.1) mmol/L FiO2 % Sodium 134 (132-148) mmol/L Potassium 3.6 (3.6-5.2) mmol/L Chloride 102 (98-107) mmol/L Carbon Dioxide 26 (22-30) mmol/L Anion Gap 9 L (10-20) BUN 11 (7-17) mg/dL Creatinine 0.7 (0.7-1.2) MG/DL Est GFR ( Amer) > 60 Est GFR (Non-Af Amer) > 60 Random Glucose 115 H (65-105) mg/dL Calcium 7.0 L (8.6-10.4) mg/dl Phosphorus (2.5-4.5) mg/dL Magnesium (1.6-2.3) mg/dL Total Bilirubin 2.6 H (0.2-1.3) mg/dL AST 50 H D (14-36) U/L ALT 45 (9-52) U/L Alkaline Phosphatase 44 (38-126) U/L Total Protein 4.9 L (6.3-8.3) g/dL Albumin 2.5 L (3.5-5.0) g/dL Globulin 2.5 (2.2-3.9) gm/dL Albumin/Globulin Ratio 1.0 (1.0-2.1) TSH 3rd Generation (0.46-4.68) mIU/L Plasma Cortisol PM (1.7-14.1) ug/dL Arterial Blood Potassium (3.6-5.2) mmol/L Urine Color (YELLOW) Urine Clarity (Clear) Urine pH (5.0-8.0) Ur Specific [place] (1.003-1.030) Urine Protein (NEGATIVE) mg/dL Urine Glucose (UA) (Normal) mg/dL Urine Ketones (NEGATIVE) mg/dL Urine Blood (NEGATIVE) Urine Nitrate (NEGATIVE) Urine Bilirubin (NEGATIVE) Urine Urobilinogen (0.2-1.0) mg/dL Ur Leukocyte Esterase (Negative) Benny/uL Ur Squamous Epith Cells (0-5) /hpf Urine Bacteria (<OCC) Blood Type Antibody Screen 12/15/16 12/15/16 12/15/16 Range/Units 20:58 20:58 20:58 WBC 11.9 H (4.8-10.8) K/uL RBC 3.09 L (3.80-5.20) Mil/uL Hgb 9.3 L (11.0-16.0) g/dL Hct 27.8 L (34.0-47.0) % MCV 89.9 D (81.0-99.0) fL MCH 30.1 (27.0-31.0) pg MCHC 33.5 (33.0-37.0) g/dL RDW 15.3 H (11.5-14.5) % Plt Count 151 D (130-400) K/uL MPV 7.9 (7.2-11.7) fL Neut % (Auto) 89.2 H (50.0-75.0) % Lymph % (Auto) 6.8 L (20.0-40.0) % Foster % (Auto) 3.9 (0.0-10.0) % Eos % (Auto) 0.0 (0.0-4.0) % Baso % (Auto) 0.1 (0.0-2.0) % Neut # 10.7 H (1.8-7.0) K/uL Lymph # 0.8 L (1.0-4.3) K/uL Foster # 0.5 (0.0-0.8) K/uL Eos # 0.0 (0.0-0.7) K/uL Baso # 0.0 (0.0-0.2) K/uL Neutrophils % (Manual) (50-75) % Band Neutrophils % (0-2) % Lymphocytes % (Manual) (20-40) % Monocytes % (Manual) (0-10) % Platelet Estimate (NORMAL) RBC Morphology PT 18.2 H (9.7-12.2) SECONDS INR 1.6 APTT 30 (21-34) SECONDS Puncture Site pCO2 (35-45) mm/Hg pO2 (80-100) mm/Hg HCO3 (21-28) mmol/L ABG pH (7.35-7.45) ABG Total CO2 (22-28) mmol/L ABG O2 Saturation (95-98) % ABG Base Excess (-2.0-3.0) mmol/L Benitez Test ABG Potassium (3.6-5.2) mmol/L A-a O2 Difference mm/Hg Respiratory Index Glucose (65-105) mg/dl Lactate (0.7-2.1) mmol/L FiO2 % Sodium 133 (132-148) mmol/L Potassium 3.6 (3.6-5.2) mmol/L Chloride 102 (98-107) mmol/L Carbon Dioxide 23 (22-30) mmol/L Anion Gap 11 (10-20) BUN 10 (7-17) mg/dL Creatinine 0.8 (0.7-1.2) MG/DL Est GFR ( Amer) > 60 Est GFR (Non-Af Amer) > 60 Random Glucose 180 H (65-105) mg/dL Calcium 6.4 L (8.6-10.4) mg/dl Phosphorus 2.8 (2.5-4.5) mg/dL Magnesium 1.9 (1.6-2.3) mg/dL Total Bilirubin 3.3 H (0.2-1.3) mg/dL AST 68 H D (14-36) U/L ALT 52 D (9-52) U/L Alkaline Phosphatase 38 D (38-126) U/L Total Protein 4.5 L (6.3-8.3) g/dL Albumin 2.1 L D (3.5-5.0) g/dL Globulin 2.4 (2.2-3.9) gm/dL Albumin/Globulin Ratio 0.9 L (1.0-2.1) TSH 3rd Generation 0.91 (0.46-4.68) mIU/L Plasma Cortisol PM 22.1 H (1.7-14.1) ug/dL Arterial Blood Potassium (3.6-5.2) mmol/L Urine Color (YELLOW) Urine Clarity (Clear) Urine pH (5.0-8.0) Ur Specific [place] (1.003-1.030) Urine Protein (NEGATIVE) mg/dL Urine Glucose (UA) (Normal) mg/dL Urine Ketones (NEGATIVE) mg/dL Urine Blood (NEGATIVE) Urine Nitrate (NEGATIVE) Urine Bilirubin (NEGATIVE) Urine Urobilinogen (0.2-1.0) mg/dL Ur Leukocyte Esterase (Negative) Benny/uL Ur Squamous Epith Cells (0-5) /hpf Urine Bacteria (<OCC) Blood Type Antibody Screen 12/15/16 12/15/16 12/15/16 Range/Units 20:50 18:33 17:50 WBC (4.8-10.8) K/uL RBC (3.80-5.20) Mil/uL Hgb (11.0-16.0) g/dL Hct (34.0-47.0) % MCV (81.0-99.0) fL MCH (27.0-31.0) pg MCHC (33.0-37.0) g/dL RDW (11.5-14.5) % Plt Count (130-400) K/uL MPV (7.2-11.7) fL Neut % (Auto) (50.0-75.0) % Lymph % (Auto) (20.0-40.0) % Foster % (Auto) (0.0-10.0) % Eos % (Auto) (0.0-4.0) % Baso % (Auto) (0.0-2.0) % Neut # (1.8-7.0) K/uL Lymph # (1.0-4.3) K/uL [place] # (0.0-0.8) K/uL Eos # (0.0-0.7) K/uL Baso # (0.0-0.2) K/uL Neutrophils % (Manual) (50-75) % Band Neutrophils % (0-2) % Lymphocytes % (Manual) (20-40) % Monocytes % (Manual) (0-10) % Platelet Estimate (NORMAL) RBC Morphology PT (9.7-12.2) SECONDS INR APTT (21-34) SECONDS Puncture Site Phylicia Azevedoline pCO2 39 37 (35-45) mm/Hg pO2 64 L 143 H (80-100) mm/Hg HCO3 23.4 24.8 (21-28) mmol/L ABG pH 7.38 7.42 (7.35-7.45) ABG Total CO2 24.3 25.1 (22-28) mmol/L ABG O2 Saturation 97.5 100.2 H (95-98) % ABG Base Excess -1.8 -0.2 (-2.0-3.0) mmol/L Benitez Test Na Na ABG Potassium 3.5 L 3.7 (3.6-5.2) mmol/L A-a O2 Difference 37.0 67.0 mm/Hg Respiratory Index 0.6 0.5 Glucose 188 H 157 H (65-105) mg/dl Lactate 1.9 2.1 (0.7-2.1) mmol/L FiO2 21.0 36.0 % Sodium 135.0 135.0 (132-148) mmol/L Potassium (3.6-5.2) mmol/L Chloride 108.0 H 109.0 H (98-107) mmol/L Carbon Dioxide (22-30) mmol/L Anion Gap (10-20) BUN (7-17) mg/dL Creatinine (0.7-1.2) MG/DL Est GFR ( Amer) Est GFR (Non-Af Amer) Random Glucose (65-105) mg/dL Calcium (8.6-10.4) mg/dl Phosphorus (2.5-4.5) mg/dL Magnesium (1.6-2.3) mg/dL Total Bilirubin (0.2-1.3) mg/dL AST (14-36) U/L ALT (9-52) U/L Alkaline Phosphatase (38-126) U/L Total Protein (6.3-8.3) g/dL Albumin (3.5-5.0) g/dL Globulin (2.2-3.9) gm/dL Albumin/Globulin Ratio (1.0-2.1) TSH 3rd Generation (0.46-4.68) mIU/L Plasma Cortisol PM (1.7-14.1) ug/dL Arterial Blood Potassium 3.5 L 3.7 (3.6-5.2) mmol/L Urine Color Colette (YELLOW) Urine Clarity Hazy (Clear) Urine pH 5.0 (5.0-8.0) Ur Specific [place] 1.032 H (1.003-1.030) Urine Protein 2+ H (NEGATIVE) mg/dL Urine Glucose (UA) 1+ (Normal) mg/dL Urine Ketones Trace (NEGATIVE) mg/dL Urine Blood Negative (NEGATIVE) Urine Nitrate Negative (NEGATIVE) Urine Bilirubin Negative (NEGATIVE) Urine Urobilinogen Normal (0.2-1.0) mg/dL Ur Leukocyte Esterase Neg (Negative) Benny/uL Ur Squamous Epith Cells 2 (0-5) /hpf Urine Bacteria Occ H (<OCC) Blood Type Antibody Screen 12/15/16 12/15/16 12/15/16 Range/Units 17:09 17:09 17:09 WBC 16.2 H (4.8-10.8) K/uL RBC 3.10 L (3.80-5.20) Mil/uL Hgb 9.8 L D (11.0-16.0) g/dL Hct 28.7 L (34.0-47.0) % MCV 92.8 (81.0-99.0) fL MCH 31.7 H (27.0-31.0) pg MCHC 34.2 (33.0-37.0) g/dL RDW 12.9 (11.5-14.5) % Plt Count 303 (130-400) K/uL MPV 7.9 (7.2-11.7) fL Neut % (Auto) 90.7 H (50.0-75.0) % Lymph % (Auto) 5.5 L (20.0-40.0) % Foster % (Auto) 3.6 (0.0-10.0) % Eos % (Auto) 0.1 (0.0-4.0) % Baso % (Auto) 0.1 (0.0-2.0) % Neut # 14.7 H (1.8-7.0) K/uL Lymph # 0.9 L (1.0-4.3) K/uL Foster # 0.6 (0.0-0.8) K/uL Eos # 0.0 (0.0-0.7) K/uL Baso # 0.0 (0.0-0.2) K/uL Neutrophils % (Manual) 88 H (50-75) % Band Neutrophils % 1 (0-2) % Lymphocytes % (Manual) 6 L (20-40) % Monocytes % (Manual) 5 (0-10) % Platelet Estimate Normal (NORMAL) RBC Morphology Normal PT (9.7-12.2) SECONDS INR APTT (21-34) SECONDS Puncture Site pCO2 (35-45) mm/Hg pO2 (80-100) mm/Hg HCO3 (21-28) mmol/L ABG pH (7.35-7.45) ABG Total CO2 (22-28) mmol/L ABG O2 Saturation (95-98) % ABG Base Excess (-2.0-3.0) mmol/L Benitez Test ABG Potassium (3.6-5.2) mmol/L A-a O2 Difference mm/Hg Respiratory Index Glucose (65-105) mg/dl Lactate (0.7-2.1) mmol/L FiO2 % Sodium 133 (132-148) mmol/L Potassium 3.8 (3.6-5.2) mmol/L Chloride 100 (98-107) mmol/L Carbon Dioxide 26 (22-30) mmol/L Anion Gap 10 (10-20) BUN 10 (7-17) mg/dL Creatinine 1.0 (0.7-1.2) MG/DL Est GFR ( Amer) > 60 Est GFR (Non-Af Amer) > 60 Random Glucose 175 H (65-105) mg/dL Calcium 7.2 L (8.6-10.4) mg/dl Phosphorus (2.5-4.5) mg/dL Magnesium (1.6-2.3) mg/dL Total Bilirubin 2.0 H (0.2-1.3) mg/dL AST 33 (14-36) U/L ALT 32 (9-52) U/L Alkaline Phosphatase 57 (38-126) U/L Total Protein 5.8 L (6.3-8.3) g/dL Albumin 2.7 L D (3.5-5.0) g/dL Globulin 3.1 (2.2-3.9) gm/dL Albumin/Globulin Ratio 0.9 L (1.0-2.1) TSH 3rd Generation (0.46-4.68) mIU/L Plasma Cortisol PM (1.7-14.1) ug/dL Arterial Blood Potassium (3.6-5.2) mmol/L Urine Color (YELLOW) Urine Clarity (Clear) Urine pH (5.0-8.0) Ur Specific [place] (1.003-1.030) Urine Protein (NEGATIVE) mg/dL Urine Glucose (UA) (Normal) mg/dL Urine Ketones (NEGATIVE) mg/dL Urine Blood (NEGATIVE) Urine Nitrate (NEGATIVE) Urine Bilirubin (NEGATIVE) Urine Urobilinogen (0.2-1.0) mg/dL Ur Leukocyte Esterase (Negative) Benny/uL Ur Squamous Epith Cells (0-5) /hpf Urine Bacteria (<OCC) Blood Type A POSITIVE Antibody Screen Negative Laboratory Results - last 24 hr 12/15/16 12/15/16 12/15/16 17:09 17:09 17:09 WBC 16.2 H RBC 3.10 L Hgb 9.8 L D Hct 28.7 L MCV 92.8 MCH 31.7 H MCHC 34.2 RDW 12.9 Plt Count 303 MPV 7.9 Neut % (Auto) 90.7 H Lymph % (Auto) 5.5 L Foster % (Auto) 3.6 Eos % (Auto) 0.1 Baso % (Auto) 0.1 Neut # 14.7 H Lymph # 0.9 L Foster # 0.6 Eos # 0.0 Baso # 0.0 Neutrophils % (Manual) 88 H Band Neutrophils % 1 Lymphocytes % (Manual) 6 L Monocytes % (Manual) 5 Platelet Estimate Normal RBC Morphology Normal PT INR APTT Puncture Site pCO2 pO2 HCO3 ABG pH ABG Total CO2 ABG O2 Saturation ABG Base Excess Benitez Test ABG Potassium A-a O2 Difference Respiratory Index Glucose Lactate FiO2 Sodium 133 Potassium 3.8 Chloride 100 Carbon Dioxide 26 Anion Gap 10 BUN 10 Creatinine 1.0 Est GFR ( Amer) > 60 Est GFR (Non-Af Amer) > 60 Random Glucose 175 H Calcium 7.2 L Phosphorus Magnesium Total Bilirubin 2.0 H AST 33 ALT 32 Alkaline Phosphatase 57 Total Protein 5.8 L Albumin 2.7 L D Globulin 3.1 Albumin/Globulin Ratio 0.9 L TSH 3rd Generation Plasma Cortisol PM Arterial Blood Potassium Urine Color Urine Clarity Urine pH Ur Specific [place] Urine Protein Urine Glucose (UA) Urine Ketones Urine Blood Urine Nitrate Urine Bilirubin Urine Urobilinogen Ur Leukocyte Esterase Ur Squamous Epith Cells Urine Bacteria Blood Type A POSITIVE Antibody Screen Negative 12/15/16 12/15/16 12/15/16 17:50 18:33 20:50 WBC RBC Hgb Hct MCV MCH MCHC RDW Plt Count MPV Neut % (Auto) Lymph % (Auto) Foster % (Auto) Eos % (Auto) Baso % (Auto) Neut # Lymph # Foster # Eos # Baso # Neutrophils % (Manual) Band Neutrophils % Lymphocytes % (Manual) Monocytes % (Manual) Platelet Estimate RBC Morphology PT INR APTT Puncture Site Aric Whatley pCO2 37 39 pO2 143 H 64 L HCO3 24.8 23.4 ABG pH 7.42 7.38 ABG Total CO2 25.1 24.3 ABG O2 Saturation 100.2 H 97.5 ABG Base Excess -0.2 -1.8 Benitez Test Na Na ABG Potassium 3.7 3.5 L A-a O2 Difference 67.0 37.0 Respiratory Index 0.5 0.6 Glucose 157 H 188 H Lactate 2.1 1.9 FiO2 36.0 21.0 Sodium 135.0 135.0 Potassium Chloride 109.0 H 108.0 H Carbon Dioxide Anion Gap BUN Creatinine Est GFR ( Amer) Est GFR (Non-Af Amer) Random Glucose Calcium Phosphorus Magnesium Total Bilirubin AST ALT Alkaline Phosphatase Total Protein Albumin Globulin Albumin/Globulin Ratio TSH 3rd Generation Plasma Cortisol PM Arterial Blood Potassium 3.7 3.5 L Urine Color Colette Urine Clarity Hazy Urine pH 5.0 Ur Specific [place] 1.032 H Urine Protein 2+ H Urine Glucose (UA) 1+ Urine Ketones Trace Urine Blood Negative Urine Nitrate Negative Urine Bilirubin Negative Urine Urobilinogen Normal Ur Leukocyte Esterase Neg Ur Squamous Epith Cells 2 Urine Bacteria Occ H Blood Type Antibody Screen 12/15/16 12/15/16 12/15/16 20:58 20:58 20:58 WBC 11.9 H RBC 3.09 L Hgb 9.3 L Hct 27.8 L MCV 89.9 D MCH 30.1 MCHC 33.5 RDW 15.3 H Plt Count 151 D MPV 7.9 Neut % (Auto) 89.2 H Lymph % (Auto) 6.8 L Foster % (Auto) 3.9 Eos % (Auto) 0.0 Baso % (Auto) 0.1 Neut # 10.7 H Lymph # 0.8 L Foster # 0.5 Eos # 0.0 Baso # 0.0 Neutrophils % (Manual) Band Neutrophils % Lymphocytes % (Manual) Monocytes % (Manual) Platelet Estimate RBC Morphology PT 18.2 H INR 1.6 APTT 30 Puncture Site pCO2 pO2 HCO3 ABG pH ABG Total CO2 ABG O2 Saturation ABG Base Excess Benitez Test ABG Potassium A-a O2 Difference Respiratory Index Glucose Lactate FiO2 Sodium 133 Potassium 3.6 Chloride 102 Carbon Dioxide 23 Anion Gap 11 BUN 10 Creatinine 0.8 Est GFR ( Amer) > 60 Est GFR (Non-Af Amer) > 60 Random Glucose 180 H Calcium 6.4 L Phosphorus 2.8 Magnesium 1.9 Total Bilirubin 3.3 H AST 68 H D ALT 52 D Alkaline Phosphatase 38 D Total Protein 4.5 L Albumin 2.1 L D Globulin 2.4 Albumin/Globulin Ratio 0.9 L TSH 3rd Generation 0.91 Plasma Cortisol PM 22.1 H Arterial Blood Potassium Urine Color Urine Clarity Urine pH Ur Specific [place] Urine Protein Urine Glucose (UA) Urine Ketones Urine Blood Urine Nitrate Urine Bilirubin Urine Urobilinogen Ur Leukocyte Esterase Ur Squamous Epith Cells Urine Bacteria Blood Type Antibody Screen 12/16/16 12/16/16 12/16/16 06:09 06:09 06:09 WBC 10.5 RBC 2.55 L Hgb 7.8 L Hct 22.8 L MCV 89.5 MCH 30.5 MCHC 34.1 RDW 15.5 H Plt Count 153 MPV 8.8 Neut % (Auto) 80.0 H Lymph % (Auto) 12.2 L Foster % (Auto) 7.5 Eos % (Auto) 0.0 Baso % (Auto) 0.3 Neut # 8.4 H Lymph # 1.3 Foster # 0.8 Eos # 0.0 Baso # 0.0 Neutrophils % (Manual) Band Neutrophils % Lymphocytes % (Manual) Monocytes % (Manual) Platelet Estimate RBC Morphology PT 16.2 H INR 1.4 APTT 23 D Puncture Site pCO2 pO2 HCO3 ABG pH ABG Total CO2 ABG O2 Saturation ABG Base Excess Benitez Test ABG Potassium A-a O2 Difference Respiratory Index Glucose Lactate FiO2 Sodium 134 Potassium 3.6 Chloride 102 Carbon Dioxide 26 Anion Gap 9 L BUN 11 Creatinine 0.7 Est GFR ( Amer) > 60 Est GFR (Non-Af Amer) > 60 Random Glucose 115 H Calcium 7.0 L Phosphorus Magnesium Total Bilirubin 2.6 H AST 50 H D ALT 45 Alkaline Phosphatase 44 Total Protein 4.9 L Albumin 2.5 L Globulin 2.5 Albumin/Globulin Ratio 1.0 TSH 3rd Generation Plasma Cortisol PM Arterial Blood Potassium Urine Color Urine Clarity Urine pH Ur Specific [place] Urine Protein Urine Glucose (UA) Urine Ketones Urine Blood Urine Nitrate Urine Bilirubin Urine Urobilinogen Ur Leukocyte Esterase Ur Squamous Epith Cells Urine Bacteria Blood Type Antibody Screen EKG/Cardiology Studies: Cardiology / EKG Studies 12/15/16 17:14 EKG [ELECTROCARDIOGRAM] Stat Comment: in PACU Mode Of Transportation: PORTABLE Reason For Exam: post op hypotension EKG [ELECTROCARDIOGRAM] Stat Comment: Mode Of Transportation: PORTABLE Reason For Exam: post op hypotension Review of Systems - Review of Systems All systems: reviewed and no additional remarkable complaints except (where noted in HPI) Critical Care Progress Note - Nutrition Nutrition: Nutrition Category Date Time Status Liquid Diet [DIET] Diets 12/16/16 Breakfast Active Assessment/Plan - Assessment and Plan (Free Text) Assessment: This is a 41 yo F with cholecystitis that is s/p lap nova with postoperative bleeding requiring multiple blood transfusions, POD#1 Plan: Neuro: AAOx 3, monitor Cardiovascular: Hypotensive, but stable Cont LR at 125 cc/hr Monitor and maintain MAP of >65 Pulmonary: Saturating well, no respiratory distress Monitor Maintain Spo2 >90 Gastrointestinal: Incision site clean, dry and intact Liquid diet Hematology: Hgb 7.8 this AM. Will repeat H/H in afternoon and transfuse as necessary s/p 4 units PRBC, 2 units FFP, and 1 unit cryo Monitor for s/s's of bleeding Endocrine: No acute issues Renal: No acute issues Infectious Disease: Afebrile, no leukocytosis GI Prophylaxis: Protonix DVT Prophylaxis: Not indicated <Pérez Greene - Last Filed: 12/16/16 17:57> CCU Objective - Vital Signs / Intake & Output Vital Signs (Last 4 hours): Vital Signs Temp Pulse Resp BP Pulse Ox 12/16/16 17:00 98.7 F 89 20 108/55 L 96 12/16/16 16:00 98.4 F 86 18 91/76 L 98 12/16/16 15:00 87 18 104/56 L 99 12/16/16 14:00 87 19 108/65 100 Intake and Output (Last 8hrs): Intake & Output 12/16/16 12/16/16 12/16/16 06:59 14:59 22:59 Intake Total 2040 2155 250 Output Total 575 635 375 Balance 1465 1520 -125 Intake: Intake, IV Amount 2039 1075 250 right AC 1940 1075 250 right AC side port 100 Oral 0 1080 0 Blood Product 0 Red Blood Cells Cpd As1 0 Lr Unit [id number] Output: Drainage 40 right abdomen 40 Urine 535 635 375 Urethral ([place]) 535 635 375 Other: # Bowel Movements 0 0 - Medications Active Medications: Active Medications Generic Name Dose Route Start Last Admin Trade Name Freq PRN Reason Stop Dose Admin Docusate Sodium 100 mg 12/15/16 18:00 12/16/16 17:49 Colace PO 100 mg TID JACK Administration Hydromorphone HCl 0.5 mg 12/15/16 20:32 12/16/16 17:48 Dilaudid IVP 0.5 mg Q3 PRN Administration Pain, moderate (4-7) Piperacillin Sod/Tazobactam 100 mls @ 200 mls/hr 12/15/16 14:00 12/16/16 14: 00 Sod 3.375 gm/ Sodium Chloride IVPB 12/16/16 23:59 200 mls/hr Q6H JACK Administration Lactated Ringer's 1,000 mls @ 125 mls/hr 12/16/16 07:10 12/16/16 17:49 Lactated Ringer's IV Not Given .Q8H JACK Ondansetron HCl 4 mg 12/15/16 09:37 Zofran Inj IVP Q4 PRN Nausea/Vomiting Pantoprazole Sodium 40 mg 12/16/16 10:00 12/16/16 10:12 Protonix Inj IVP 40 mg DAILY JACK Administration Pneumococcal Polyvalent Vaccine 0.5 ml 12/17/16 14:24 Pneumovax 23 Vaccine IM 12/17/16 14:25 .ONCE ONE - Patient Studies Lab Studies: Lab Studies 12/16/16 12/16/16 12/16/16 Range/Units 16:19 16:19 16:19 WBC 13.1 H (4.8-10.8) K/uL RBC 2.41 L (3.80-5.20) Mil/uL Hgb 7.2 L (11.0-16.0) g/dL Hct 21.6 L (34.0-47.0) % MCV 89.7 (81.0-99.0) fL MCH 30.0 (27.0-31.0) pg MCHC 33.5 (33.0-37.0) g/dL RDW 15.5 H (11.5-14.5) % Plt Count 196 (130-400) K/uL MPV 8.4 (7.2-11.7) fL Neut % (Auto) (50.0-75.0) % Lymph % (Auto) (20.0-40.0) % Foster % (Auto) (0.0-10.0) % Eos % (Auto) (0.0-4.0) % Baso % (Auto) (0.0-2.0) % Neut # (1.8-7.0) K/uL Lymph # (1.0-4.3) K/uL Foster # (0.0-0.8) K/uL Eos # (0.0-0.7) K/uL Baso # (0.0-0.2) K/uL Neutrophils % (Manual) (50-75) % Band Neutrophils % (0-2) % Lymphocytes % (Manual) (20-40) % Monocytes % (Manual) (0-10) % Platelet Estimate (NORMAL) RBC Morphology PT 15.2 H (9.7-12.2) SECONDS INR 1.3 APTT 27 (21-34) SECONDS Puncture Site pCO2 (35-45) mm/Hg pO2 (80-100) mm/Hg HCO3 (21-28) mmol/L ABG pH (7.35-7.45) ABG Total CO2 (22-28) mmol/L ABG O2 Saturation (95-98) % ABG Base Excess (-2.0-3.0) mmol/L Benitez Test ABG Potassium (3.6-5.2) mmol/L A-a O2 Difference mm/Hg Respiratory Index Sodium 136 (132-148) mmol/l Chloride 102 (98-107) mmol/L Glucose (65-105) mg/dl Lactate (0.7-2.1) mmol/L FiO2 % Potassium 3.4 L (3.6-5.2) mmol/L Carbon Dioxide 26 (22-30) mmol/L Anion Gap 11 (10-20) BUN 9 (7-17) mg/dL Creatinine 0.7 (0.7-1.2) MG/DL Est GFR ( Amer) > 60 Est GFR (Non-Af Amer) > 60 Random Glucose 103 (65-105) mg/dL Calcium 7.3 L (8.6-10.4) mg/dl Phosphorus (2.5-4.5) mg/dL Magnesium (1.6-2.3) mg/dL Total Bilirubin (0.2-1.3) mg/dL AST (14-36) U/L ALT (9-52) U/L Alkaline Phosphatase (38-126) U/L Total Protein (6.3-8.3) g/dL Albumin (3.5-5.0) g/dL Globulin (2.2-3.9) gm/dL Albumin/Globulin Ratio (1.0-2.1) TSH 3rd Generation (0.46-4.68) mIU/L Plasma Cortisol PM (1.7-14.1) ug/dL Arterial Blood Potassium (3.6-5.2) mmol/L Urine Color (YELLOW) Urine Clarity (Clear) Urine pH (5.0-8.0) Ur Specific [place] (1.003-1.030) Urine Protein (NEGATIVE) mg/dL Urine Glucose (UA) (Normal) mg/dL Urine Ketones (NEGATIVE) mg/dL Urine Blood (NEGATIVE) Urine Nitrate (NEGATIVE) Urine Bilirubin (NEGATIVE) Urine Urobilinogen (0.2-1.0) mg/dL Ur Leukocyte Esterase (Negative) Benny/uL Ur Squamous Epith Cells (0-5) /hpf Urine Bacteria (<OCC) Blood Type Antibody Screen 12/16/16 12/16/16 12/16/16 Range/Units 06:09 06:09 06:09 WBC 10.5 (4.8-10.8) K/uL RBC 2.55 L (3.80-5.20) Mil/uL Hgb 7.8 L (11.0-16.0) g/dL Hct 22.8 L (34.0-47.0) % MCV 89.5 (81.0-99.0) fL MCH 30.5 (27.0-31.0) pg MCHC 34.1 (33.0-37.0) g/dL RDW 15.5 H (11.5-14.5) % Plt Count 153 (130-400) K/uL MPV 8.8 (7.2-11.7) fL Neut % (Auto) 80.0 H (50.0-75.0) % Lymph % (Auto) 12.2 L (20.0-40.0) % Foster % (Auto) 7.5 (0.0-10.0) % Eos % (Auto) 0.0 (0.0-4.0) % Baso % (Auto) 0.3 (0.0-2.0) % Neut # 8.4 H (1.8-7.0) K/uL Lymph # 1.3 (1.0-4.3) K/uL Foster # 0.8 (0.0-0.8) K/uL Eos # 0.0 (0.0-0.7) K/uL Baso # 0.0 (0.0-0.2) K/uL Neutrophils % (Manual) (50-75) % Band Neutrophils % (0-2) % Lymphocytes % (Manual) (20-40) % Monocytes % (Manual) (0-10) % Platelet Estimate (NORMAL) RBC Morphology PT 16.2 H (9.7-12.2) SECONDS INR 1.4 APTT 23 D (21-34) SECONDS Puncture Site pCO2 (35-45) mm/Hg pO2 (80-100) mm/Hg HCO3 (21-28) mmol/L ABG pH (7.35-7.45) ABG Total CO2 (22-28) mmol/L ABG O2 Saturation (95-98) % ABG Base Excess (-2.0-3.0) mmol/L Benitez Test ABG Potassium (3.6-5.2) mmol/L A-a O2 Difference mm/Hg Respiratory Index Sodium 134 (132-148) mmol/l Chloride 102 (98-107) mmol/L Glucose (65-105) mg/dl Lactate (0.7-2.1) mmol/L FiO2 % Potassium 3.6 (3.6-5.2) mmol/L Carbon Dioxide 26 (22-30) mmol/L Anion Gap 9 L (10-20) BUN 11 (7-17) mg/dL Creatinine 0.7 (0.7-1.2) MG/DL Est GFR ( Amer) > 60 Est GFR (Non-Af Amer) > 60 Random Glucose 115 H (65-105) mg/dL Calcium 7.0 L (8.6-10.4) mg/dl Phosphorus (2.5-4.5) mg/dL Magnesium (1.6-2.3) mg/dL Total Bilirubin 2.6 H (0.2-1.3) mg/dL AST 50 H D (14-36) U/L ALT 45 (9-52) U/L Alkaline Phosphatase 44 (38-126) U/L Total Protein 4.9 L (6.3-8.3) g/dL Albumin 2.5 L (3.5-5.0) g/dL Globulin 2.5 (2.2-3.9) gm/dL Albumin/Globulin Ratio 1.0 (1.0-2.1) TSH 3rd Generation (0.46-4.68) mIU/L Plasma Cortisol PM (1.7-14.1) ug/dL Arterial Blood Potassium (3.6-5.2) mmol/L Urine Color (YELLOW) Urine Clarity (Clear) Urine pH (5.0-8.0) Ur Specific [place] (1.003-1.030) Urine Protein (NEGATIVE) mg/dL Urine Glucose (UA) (Normal) mg/dL Urine Ketones (NEGATIVE) mg/dL Urine Blood (NEGATIVE) Urine Nitrate (NEGATIVE) Urine Bilirubin (NEGATIVE) Urine Urobilinogen (0.2-1.0) mg/dL Ur Leukocyte Esterase (Negative) Benny/uL Ur Squamous Epith Cells (0-5) /hpf Urine Bacteria (<OCC) Blood Type Antibody Screen 12/15/16 12/15/16 12/15/16 Range/Units 20:58 20:58 20:58 WBC 11.9 H (4.8-10.8) K/uL RBC 3.09 L (3.80-5.20) Mil/uL Hgb 9.3 L (11.0-16.0) g/dL Hct 27.8 L (34.0-47.0) % MCV 89.9 D (81.0-99.0) fL MCH 30.1 (27.0-31.0) pg MCHC 33.5 (33.0-37.0) g/dL RDW 15.3 H (11.5-14.5) % Plt Count 151 D (130-400) K/uL MPV 7.9 (7.2-11.7) fL Neut % (Auto) 89.2 H (50.0-75.0) % Lymph % (Auto) 6.8 L (20.0-40.0) % Foster % (Auto) 3.9 (0.0-10.0) % Eos % (Auto) 0.0 (0.0-4.0) % Baso % (Auto) 0.1 (0.0-2.0) % Neut # 10.7 H (1.8-7.0) K/uL Lymph # 0.8 L (1.0-4.3) K/uL Foster # 0.5 (0.0-0.8) K/uL Eos # 0.0 (0.0-0.7) K/uL Baso # 0.0 (0.0-0.2) K/uL Neutrophils % (Manual) (50-75) % Band Neutrophils % (0-2) % Lymphocytes % (Manual) (20-40) % Monocytes % (Manual) (0-10) % Platelet Estimate (NORMAL) RBC Morphology PT 18.2 H (9.7-12.2) SECONDS INR 1.6 APTT 30 (21-34) SECONDS Puncture Site pCO2 (35-45) mm/Hg pO2 (80-100) mm/Hg HCO3 (21-28) mmol/L ABG pH (7.35-7.45) ABG Total CO2 (22-28) mmol/L ABG O2 Saturation (95-98) % ABG Base Excess (-2.0-3.0) mmol/L Benitez Test ABG Potassium (3.6-5.2) mmol/L A-a O2 Difference mm/Hg Respiratory Index Sodium 133 (132-148) mmol/l Chloride 102 (98-107) mmol/L Glucose (65-105) mg/dl Lactate (0.7-2.1) mmol/L FiO2 % Potassium 3.6 (3.6-5.2) mmol/L Carbon Dioxide 23 (22-30) mmol/L Anion Gap 11 (10-20) BUN 10 (7-17) mg/dL Creatinine 0.8 (0.7-1.2) MG/DL Est GFR ( Amer) > 60 Est GFR (Non-Af Amer) > 60 Random Glucose 180 H (65-105) mg/dL Calcium 6.4 L (8.6-10.4) mg/dl Phosphorus 2.8 (2.5-4.5) mg/dL Magnesium 1.9 (1.6-2.3) mg/dL Total Bilirubin 3.3 H (0.2-1.3) mg/dL AST 68 H D (14-36) U/L ALT 52 D (9-52) U/L Alkaline Phosphatase 38 D (38-126) U/L Total Protein 4.5 L (6.3-8.3) g/dL Albumin 2.1 L D (3.5-5.0) g/dL Globulin 2.4 (2.2-3.9) gm/dL Albumin/Globulin Ratio 0.9 L (1.0-2.1) TSH 3rd Generation 0.91 (0.46-4.68) mIU/L Plasma Cortisol PM 22.1 H (1.7-14.1) ug/dL Arterial Blood Potassium (3.6-5.2) mmol/L Urine Color (YELLOW) Urine Clarity (Clear) Urine pH (5.0-8.0) Ur Specific [place] (1.003-1.030) Urine Protein (NEGATIVE) mg/dL Urine Glucose (UA) (Normal) mg/dL Urine Ketones (NEGATIVE) mg/dL Urine Blood (NEGATIVE) Urine Nitrate (NEGATIVE) Urine Bilirubin (NEGATIVE) Urine Urobilinogen (0.2-1.0) mg/dL Ur Leukocyte Esterase (Negative) Benny/uL Ur Squamous Epith Cells (0-5) /hpf Urine Bacteria (<OCC) Blood Type Antibody Screen 12/15/16 12/15/16 12/15/16 Range/Units 20:50 18:33 17:50 WBC (4.8-10.8) K/uL RBC (3.80-5.20) Mil/uL Hgb (11.0-16.0) g/dL Hct (34.0-47.0) % MCV (81.0-99.0) fL MCH (27.0-31.0) pg MCHC (33.0-37.0) g/dL RDW (11.5-14.5) % Plt Count (130-400) K/uL MPV (7.2-11.7) fL Neut % (Auto) (50.0-75.0) % Lymph % (Auto) (20.0-40.0) % Foster % (Auto) (0.0-10.0) % Eos % (Auto) (0.0-4.0) % Baso % (Auto) (0.0-2.0) % Neut # (1.8-7.0) K/uL Lymph # (1.0-4.3) K/uL Foster # (0.0-0.8) K/uL Eos # (0.0-0.7) K/uL Baso # (0.0-0.2) K/uL Neutrophils % (Manual) (50-75) % Band Neutrophils % (0-2) % Lymphocytes % (Manual) (20-40) % Monocytes % (Manual) (0-10) % Platelet Estimate (NORMAL) RBC Morphology PT (9.7-12.2) SECONDS INR APTT (21-34) SECONDS Puncture Site [place] Laline pCO2 39 37 (35-45) mm/Hg pO2 64 L 143 H (80-100) mm/Hg HCO3 23.4 24.8 (21-28) mmol/L ABG pH 7.38 7.42 (7.35-7.45) ABG Total CO2 24.3 25.1 (22-28) mmol/L ABG O2 Saturation 97.5 100.2 H (95-98) % ABG Base Excess -1.8 -0.2 (-2.0-3.0) mmol/L Benitez Test Na Na ABG Potassium 3.5 L 3.7 (3.6-5.2) mmol/L A-a O2 Difference 37.0 67.0 mm/Hg Respiratory Index 0.6 0.5 Sodium 135.0 135.0 (132-148) mmol/l Chloride 108.0 H 109.0 H (98-107) mmol/L Glucose 188 H 157 H (65-105) mg/dl Lactate 1.9 2.1 (0.7-2.1) mmol/L FiO2 21.0 36.0 % Potassium (3.6-5.2) mmol/L Carbon Dioxide (22-30) mmol/L Anion Gap (10-20) BUN (7-17) mg/dL Creatinine (0.7-1.2) MG/DL Est GFR ( Amer) Est GFR (Non-Af Amer) Random Glucose (65-105) mg/dL Calcium (8.6-10.4) mg/dl Phosphorus (2.5-4.5) mg/dL Magnesium (1.6-2.3) mg/dL Total Bilirubin (0.2-1.3) mg/dL AST (14-36) U/L ALT (9-52) U/L Alkaline Phosphatase (38-126) U/L Total Protein (6.3-8.3) g/dL Albumin (3.5-5.0) g/dL Globulin (2.2-3.9) gm/dL Albumin/Globulin Ratio (1.0-2.1) TSH 3rd Generation (0.46-4.68) mIU/L Plasma Cortisol PM (1.7-14.1) ug/dL Arterial Blood Potassium 3.5 L 3.7 (3.6-5.2) mmol/L Urine Color Colette (YELLOW) Urine Clarity Hazy (Clear) Urine pH 5.0 (5.0-8.0) Ur Specific [place] 1.032 H (1.003-1.030) Urine Protein 2+ H (NEGATIVE) mg/dL Urine Glucose (UA) 1+ (Normal) mg/dL Urine Ketones Trace (NEGATIVE) mg/dL Urine Blood Negative (NEGATIVE) Urine Nitrate Negative (NEGATIVE) Urine Bilirubin Negative (NEGATIVE) Urine Urobilinogen Normal (0.2-1.0) mg/dL Ur Leukocyte Esterase Neg (Negative) Benny/uL Ur Squamous Epith Cells 2 (0-5) /hpf Urine Bacteria Occ H (<OCC) Blood Type Antibody Screen 12/15/16 12/15/16 Range/Units 17:09 17:09 WBC (4.8-10.8) K/uL RBC (3.80-5.20) Mil/uL Hgb (11.0-16.0) g/dL Hct (34.0-47.0) % MCV (81.0-99.0) fL MCH (27.0-31.0) pg MCHC (33.0-37.0) g/dL RDW (11.5-14.5) % Plt Count (130-400) K/uL MPV (7.2-11.7) fL Neut % (Auto) (50.0-75.0) % Lymph % (Auto) (20.0-40.0) % Foster % (Auto) (0.0-10.0) % Eos % (Auto) (0.0-4.0) % Baso % (Auto) (0.0-2.0) % Neut # (1.8-7.0) K/uL Lymph # (1.0-4.3) K/uL Foster # (0.0-0.8) K/uL Eos # (0.0-0.7) K/uL Baso # (0.0-0.2) K/uL Neutrophils % (Manual) 88 H (50-75) % Band Neutrophils % 1 (0-2) % Lymphocytes % (Manual) 6 L (20-40) % Monocytes % (Manual) 5 (0-10) % Platelet Estimate Normal (NORMAL) RBC Morphology Normal PT (9.7-12.2) SECONDS INR APTT (21-34) SECONDS Puncture Site pCO2 (35-45) mm/Hg pO2 (80-100) mm/Hg HCO3 (21-28) mmol/L ABG pH (7.35-7.45) ABG Total CO2 (22-28) mmol/L ABG O2 Saturation (95-98) % ABG Base Excess (-2.0-3.0) mmol/L Benitez Test ABG Potassium (3.6-5.2) mmol/L A-a O2 Difference mm/Hg Respiratory Index Sodium (132-148) mmol/l Chloride (98-107) mmol/L Glucose (65-105) mg/dl Lactate (0.7-2.1) mmol/L FiO2 % Potassium (3.6-5.2) mmol/L Carbon Dioxide (22-30) mmol/L Anion Gap (10-20) BUN (7-17) mg/dL Creatinine (0.7-1.2) MG/DL Est GFR ( Amer) Est GFR (Non-Af Amer) Random Glucose (65-105) mg/dL Calcium (8.6-10.4) mg/dl Phosphorus (2.5-4.5) mg/dL Magnesium (1.6-2.3) mg/dL Total Bilirubin (0.2-1.3) mg/dL AST (14-36) U/L ALT (9-52) U/L Alkaline Phosphatase (38-126) U/L Total Protein (6.3-8.3) g/dL Albumin (3.5-5.0) g/dL Globulin (2.2-3.9) gm/dL Albumin/Globulin Ratio (1.0-2.1) TSH 3rd Generation (0.46-4.68) mIU/L Plasma Cortisol PM (1.7-14.1) ug/dL Arterial Blood Potassium (3.6-5.2) mmol/L Urine Color (YELLOW) Urine Clarity (Clear) Urine pH (5.0-8.0) Ur Specific [place] (1.003-1.030) Urine Protein (NEGATIVE) mg/dL Urine Glucose (UA) (Normal) mg/dL Urine Ketones (NEGATIVE) mg/dL Urine Blood (NEGATIVE) Urine Nitrate (NEGATIVE) Urine Bilirubin (NEGATIVE) Urine Urobilinogen (0.2-1.0) mg/dL Ur Leukocyte Esterase (Negative) Benny/uL Ur Squamous Epith Cells (0-5) /hpf Urine Bacteria (<OCC) Blood Type A POSITIVE Antibody Screen Negative Laboratory Results - last 24 hr 12/15/16 12/15/16 12/15/16 17:09 17:09 17:50 WBC RBC Hgb Hct MCV MCH MCHC RDW Plt Count MPV Neut % (Auto) Lymph % (Auto) Foster % (Auto) Eos % (Auto) Baso % (Auto) Neut # Lymph # Foster # Eos # Baso # Neutrophils % (Manual) 88 H Band Neutrophils % 1 Lymphocytes % (Manual) 6 L Monocytes % (Manual) 5 Platelet Estimate Normal RBC Morphology Normal PT INR APTT Puncture Site Laline pCO2 37 pO2 143 H HCO3 24.8 ABG pH 7.42 ABG Total CO2 25.1 ABG O2 Saturation 100.2 H ABG Base Excess -0.2 Benitez Test Na ABG Potassium 3.7 A-a O2 Difference 67.0 Respiratory Index 0.5 Sodium 135.0 Chloride 109.0 H Glucose 157 H Lactate 2.1 FiO2 36.0 Potassium Carbon Dioxide Anion Gap BUN Creatinine Est GFR ( Amer) Est GFR (Non-Af Amer) Random Glucose Calcium Phosphorus Magnesium Total Bilirubin AST ALT Alkaline Phosphatase Total Protein Albumin Globulin Albumin/Globulin Ratio TSH 3rd Generation Plasma Cortisol PM Arterial Blood Potassium 3.7 Urine Color Urine Clarity Urine pH Ur Specific [place] Urine Protein Urine Glucose (UA) Urine Ketones Urine Blood Urine Nitrate Urine Bilirubin Urine Urobilinogen Ur Leukocyte Esterase Ur Squamous Epith Cells Urine Bacteria Blood Type A POSITIVE Antibody Screen Negative 12/15/16 12/15/16 12/15/16 18:33 20:50 20:58 WBC 11.9 H RBC 3.09 L Hgb 9.3 L Hct 27.8 L MCV 89.9 D MCH 30.1 MCHC 33.5 RDW 15.3 H Plt Count 151 D MPV 7.9 Neut % (Auto) 89.2 H Lymph % (Auto) 6.8 L Foster % (Auto) 3.9 Eos % (Auto) 0.0 Baso % (Auto) 0.1 Neut # 10.7 H Lymph # 0.8 L Foster # 0.5 Eos # 0.0 Baso # 0.0 Neutrophils % (Manual) Band Neutrophils % Lymphocytes % (Manual) Monocytes % (Manual) Platelet Estimate RBC Morphology PT INR APTT Puncture Site [place] pCO2 39 pO2 64 L HCO3 23.4 ABG pH 7.38 ABG Total CO2 24.3 ABG O2 Saturation 97.5 ABG Base Excess -1.8 Benitez Test Na ABG Potassium 3.5 L A-a O2 Difference 37.0 Respiratory Index 0.6 Sodium 135.0 Chloride 108.0 H Glucose 188 H Lactate 1.9 FiO2 21.0 Potassium Carbon Dioxide Anion Gap BUN Creatinine Est GFR ( Amer) Est GFR (Non-Af Amer) Random Glucose Calcium Phosphorus Magnesium Total Bilirubin AST ALT Alkaline Phosphatase Total Protein Albumin Globulin Albumin/Globulin Ratio TSH 3rd Generation Plasma Cortisol PM Arterial Blood Potassium 3.5 L Urine Color Colette Urine Clarity Hazy Urine pH 5.0 Ur Specific [place] 1.032 H Urine Protein 2+ H Urine Glucose (UA) 1+ Urine Ketones Trace Urine Blood Negative Urine Nitrate Negative Urine Bilirubin Negative Urine Urobilinogen Normal Ur Leukocyte Esterase Neg Ur Squamous Epith Cells 2 Urine Bacteria Occ H Blood Type Antibody Screen 12/15/16 12/15/16 12/16/16 20:58 20:58 06:09 WBC RBC Hgb Hct MCV MCH MCHC RDW Plt Count MPV Neut % (Auto) Lymph % (Auto) Foster % (Auto) Eos % (Auto) Baso % (Auto) Neut # Lymph # Foster # Eos # Baso # Neutrophils % (Manual) Band Neutrophils % Lymphocytes % (Manual) Monocytes % (Manual) Platelet Estimate RBC Morphology PT 18.2 H INR 1.6 APTT 30 Puncture Site pCO2 pO2 HCO3 ABG pH ABG Total CO2 ABG O2 Saturation ABG Base Excess Benitez Test ABG Potassium A-a O2 Difference Respiratory Index Sodium 133 134 Chloride 102 102 Glucose Lactate FiO2 Potassium 3.6 3.6 Carbon Dioxide 23 26 Anion Gap 11 9 L BUN 10 11 Creatinine 0.8 0.7 Est GFR ( Amer) > 60 > 60 Est GFR (Non-Af Amer) > 60 > 60 Random Glucose 180 H 115 H Calcium 6.4 L 7.0 L Phosphorus 2.8 Magnesium 1.9 Total Bilirubin 3.3 H 2.6 H AST 68 H D 50 H D ALT 52 D 45 Alkaline Phosphatase 38 D 44 Total Protein 4.5 L 4.9 L Albumin 2.1 L D 2.5 L Globulin 2.4 2.5 Albumin/Globulin Ratio 0.9 L 1.0 TSH 3rd Generation 0.91 Plasma Cortisol PM 22.1 H Arterial Blood Potassium Urine Color Urine Clarity Urine pH Ur Specific [place] Urine Protein Urine Glucose (UA) Urine Ketones Urine Blood Urine Nitrate Urine Bilirubin Urine Urobilinogen Ur Leukocyte Esterase Ur Squamous Epith Cells Urine Bacteria Blood Type Antibody Screen 12/16/16 12/16/16 12/16/16 06:09 06:09 16:19 WBC 10.5 13.1 H RBC 2.55 L 2.41 L Hgb 7.8 L 7.2 L Hct 22.8 L 21.6 L MCV 89.5 89.7 MCH 30.5 30.0 MCHC 34.1 33.5 RDW 15.5 H 15.5 H Plt Count 153 196 MPV 8.8 8.4 Neut % (Auto) 80.0 H Lymph % (Auto) 12.2 L Foster % (Auto) 7.5 Eos % (Auto) 0.0 Baso % (Auto) 0.3 Neut # 8.4 H Lymph # 1.3 Foster # 0.8 Eos # 0.0 Baso # 0.0 Neutrophils % (Manual) Band Neutrophils % Lymphocytes % (Manual) Monocytes % (Manual) Platelet Estimate RBC Morphology PT 16.2 H INR 1.4 APTT 23 D Puncture Site pCO2 pO2 HCO3 ABG pH ABG Total CO2 ABG O2 Saturation ABG Base Excess Benitez Test ABG Potassium A-a O2 Difference Respiratory Index Sodium Chloride Glucose Lactate FiO2 Potassium Carbon Dioxide Anion Gap BUN Creatinine Est GFR ( Amer) Est GFR (Non-Af Amer) Random Glucose Calcium Phosphorus Magnesium Total Bilirubin AST ALT Alkaline Phosphatase Total Protein Albumin Globulin Albumin/Globulin Ratio TSH 3rd Generation Plasma Cortisol PM Arterial Blood Potassium Urine Color Urine Clarity Urine pH Ur Specific [place] Urine Protein Urine Glucose (UA) Urine Ketones Urine Blood Urine Nitrate Urine Bilirubin Urine Urobilinogen Ur Leukocyte Esterase Ur Squamous Epith Cells Urine Bacteria Blood Type Antibody Screen 12/16/16 12/16/16 16:19 16:19 WBC RBC Hgb Hct MCV MCH MCHC RDW Plt Count MPV Neut % (Auto) Lymph % (Auto) Foster % (Auto) Eos % (Auto) Baso % (Auto) Neut # Lymph # Foster # Eos # Baso # Neutrophils % (Manual) Band Neutrophils % Lymphocytes % (Manual) Monocytes % (Manual) Platelet Estimate RBC Morphology PT 15.2 H INR 1.3 APTT 27 Puncture Site pCO2 pO2 HCO3 ABG pH ABG Total CO2 ABG O2 Saturation ABG Base Excess Benitez Test ABG Potassium A-a O2 Difference Respiratory Index Sodium 136 Chloride 102 Glucose Lactate FiO2 Potassium 3.4 L Carbon Dioxide 26 Anion Gap 11 BUN 9 Creatinine 0.7 Est GFR ( Amer) > 60 Est GFR (Non-Af Amer) > 60 Random Glucose 103 Calcium 7.3 L Phosphorus Magnesium Total Bilirubin AST ALT Alkaline Phosphatase Total Protein Albumin Globulin Albumin/Globulin Ratio TSH 3rd Generation Plasma Cortisol PM Arterial Blood Potassium Urine Color Urine Clarity Urine pH Ur Specific [place] Urine Protein Urine Glucose (UA) Urine Ketones Urine Blood Urine Nitrate Urine Bilirubin Urine Urobilinogen Ur Leukocyte Esterase Ur Squamous Epith Cells Urine Bacteria Blood Type Antibody Screen EKG/Cardiology Studies: Cardiology / EKG Studies 12/15/16 17:14 EKG [ELECTROCARDIOGRAM] Stat Comment: in PACU Mode Of Transportation: PORTABLE Reason For Exam: post op hypotension EKG [ELECTROCARDIOGRAM] Stat Comment: Mode Of Transportation: PORTABLE Reason For Exam: post op hypotension Critical Care Progress Note - Nutrition Nutrition: Nutrition Category Date Time Status Liquid Diet [DIET] Diets 12/16/16 Breakfast Active Attending/Attestation - Attestation I have personally seen and examined this patient.: Yes I have fully participated in the care of the patient.: Yes I have reviewed all pertinent clinical information: Yes Notes (Text): 12/16/16 17:57 Today: , December 16, 2016 The Patient was seen and examined at the bedside, Medical records reviewed, all clinical/lab/hemodynamic/radiographic data were reviewed and management issues were discussed and formulated, Events reviewed Pain issues, skin care, head of the bed elevation, glycemic control were addressed. Agree with above treatment plans as transcribed in Dr. Jermaine benavidez
[2016-12-16 16:25] LABS: HEMATOCRIT 21.6 % (34.0-47.0); MEAN CELL VOLUME 89.7 fL (81.0-99.0); MEAN CORPUSCULAR HGB CONC 33.5 g/dL (33.0-37.0); MEAN PLATELET VOLUME 8.4 fL (7.2-11.7); RED CELL DISTRIBUTION WIDTH 15.5 % (11.5-14.5); WHITE BLOOD COUNT 13.1 K/uL (4.8-10.8)
[2016-12-16 16:34] LABS: CHLORIDE 102 mmol/L (98-107); POTASSIUM 3.4 mmol/L (3.6-5.2); SODIUM 136 mmol/L (132-148)
[2016-12-16 16:37] LABS: BLOOD UREA NITROGEN 9 mg/dL (7-17); CALCIUM 7.3 mg/dl (8.6-10.4); CARBON DIOXIDE 26 mmol/L (22-30); GFR AFRICAN-AMERICAN > 60; GLUCOSE,RANDOM 103 mg/dL (65-105); INR 1.3
[2016-12-16] MEDS ORDERED: Potassium Chloride 20 mEq ER Tab PO ONE (17:23)
--- NOTE | 2016-12-16 23:02 | CARD ---
APPROVED REPORT EKG Measurement Heart [id number] <Conclusion> Normal sinus rhythm Normal ECG
[2016-12-17] MEDS: Lactated Ringer's 1,000 ML IV SCH ×2 (01:58→08:00)
[2016-12-17 06:30] LABS: HEMATOCRIT 24.3 % (34.0-47.0); MEAN CELL VOLUME 88.2 fL (81.0-99.0); MEAN PLATELET VOLUME 8.3 fL (7.2-11.7); RED CELL DISTRIBUTION WIDTH 16.2 % (11.5-14.5); WHITE BLOOD COUNT 11.9 K/uL (4.8-10.8)
[2016-12-17 06:45] LABS: CHLORIDE 102 mmol/L (98-107); POTASSIUM 3.8 mmol/L (3.6-5.2); SODIUM 134 mmol/L (132-148)
[2016-12-17 06:47] LABS: GFR AFRICAN-AMERICAN > 60
[2016-12-17 06:48] LABS: BLOOD UREA NITROGEN 9 mg/dL (7-17); CARBON DIOXIDE 25 mmol/L (22-30); GLUCOSE,RANDOM 111 mg/dL (65-105)
[2016-12-17] MEDS: HYDROmorphone 0.5 mg/0.5 ml ISec IVP PRN (07:45)
--- NOTE | 2016-12-17 10:00 | CP.PCM.PN ---
Subjective - Date & Time of Evaluation Date of Evaluation: 12/17/16 Time of Evaluation: 09:57 - Subjective Subjective: Surgery: Dr. Licona Pt seen and examined. Resting comfortably in bed. Has mild abd pain. Tolerating CLD, no N/V. Objective - Vital Signs/Intake and Output Vital Signs (last 24 hours): Temp Pulse Resp BP Pulse Ox 98.2 F 84 14 118/65 100 12/17/16 08:00 12/17/16 09:13 12/17/16 09:13 12/17/16 09:13 12/17/16 09:13 Intake and Output: 12/17/16 12/17/16 06:59 18:59 Intake Total 2575 475 Output Total 805 200 Balance 1770 275 - Medications Medications: Current Medications Docusate Sodium (Colace) 100 mg PO TID [facility] Last Admin: 12/17/16 09:46 Dose: 100 mg Hydromorphone HCl (Dilaudid) 0.5 mg IVP Q3 PRN PRN Reason: Pain, moderate (4-7) Last Admin: 12/17/16 07:45 Dose: 0.5 mg Lactated Ringer's (Lactated Ringer's) 1,000 mls @ 125 mls/hr IV .Q8H [facility] Last Admin: 12/17/16 01:58 Dose: 125 mls/hr Ondansetron HCl (Zofran Inj) 4 mg IVP Q4 PRN PRN Reason: Nausea/Vomiting Pantoprazole Sodium (Protonix Inj) 40 mg IVP DAILY [facility] Last Admin: 12/17/16 09:46 Dose: 40 mg Pneumococcal Polyvalent Vaccine (Pneumovax 23 Vaccine) 0.5 ml IM .ONCE ONE Stop: 12/17/16 14:25 - Labs Labs: 12/17/16 06:22 12/17/16 06:22 PT 15.2 SECONDS (9.7-12.2) H 12/16/16 16:19 INR 1.3 12/16/16 16:19 APTT 27 SECONDS (21-34) 12/16/16 16:19 - Constitutional Appears: Non-toxic, No Acute Distress - Head Exam Head Exam: ATRAUMATIC, NORMOCEPHALIC - Eye Exam Eye Exam: EOMI - ENT Exam ENT Exam: Mucous Membranes Moist - Neck Exam Neck Exam: Full ROM - Respiratory Exam Respiratory Exam: NORMAL BREATHING PATTERN. absent: Accessory Muscle Use, Respiratory Distress - GI/Abdominal Exam GI & Abdominal Exam: Soft, Tenderness (mild alec-incisional ). absent: Distended, Firm, Guarding, Rigid, Rebound Additional comments: dressing in place, C/D/I - Extremities Exam Extremities Exam: absent: Calf Tenderness, Pedal Edema - Neurological Exam Neurological Exam: Alert, Awake, Oriented x3 Assessment and Plan - Assessment and Plan (Free Text) Assessment: 41F w. cholecystitis s/p lap nova w. subsequent ex-lap for post-operative bleeding, POD#2 -Hgb 8.3, continue to monitor H/H, repeat CBC this afternoon, transfuse PRN -continue w. abx -continue w. pain management, d/c dilaudid, will start percocet -recommend D/C [place] -will start FLD, ADAT -OOB and PT -d/w attending Ericitis PGY2
[2016-12-17] MEDS: Oxycodone/Acetaminophen 5/325 mg Tab PO PRN ×2 (13:28→23:56)
[2016-12-17] MEDS ORDERED: Pneumococcal 23-Valent Vaccine IM ONE (14:24)
[2016-12-17 14:59] LABS: BASO # 0.1 K/uL (0.0-0.2); BASO % 0.6 % (0.0-2.0); EOS # 0.2 K/uL (0.0-0.7); EOS % 1.9 % (0.0-4.0); HEMATOCRIT 25.5 % (34.0-47.0); LYMPH # 3.4 K/uL (1.0-4.3); LYMPH % 34.1 % (20.0-40.0); MEAN CELL VOLUME 88.7 fL (81.0-99.0); MEAN CORPUSCULAR HEMOGLOBIN 29.9 pg (27.0-31.0); MEAN CORPUSCULAR HGB CONC 33.7 g/dL (33.0-37.0); MEAN PLATELET VOLUME 7.6 fL (7.2-11.7); MONO # 0.7 K/uL (0.0-0.8); MONO % 6.5 % (0.0-10.0); RED CELL DISTRIBUTION WIDTH 16.2 % (11.5-14.5); WHITE BLOOD COUNT 10.1 K/uL (4.8-10.8)
--- NOTE | 2016-12-17 15:07 | CP.CCUPN ---
<Rolly Dean - Last Filed: 12/17/16 15:04> CCU Subjective - Physician Review Subjective (Free Text): 12/17/16 15:04 PGY-1 ICU progress note Pt seen and examined at bedside. Pt up and OOB to chair. Complains of some abdominal pain but well controlled on current pain med regimen. Denies chest pain, sob, nausea, vomiting. Admits to dizziness when transferring. Critical Care Time Spent (in minutes): 35 CCU Objective - Vital Signs / Intake & Output Vital Signs (Last 4 hours): Vital Signs Pulse Resp BP Pulse Ox 12/17/16 12:13 86 17 118/62 98 12/17/16 11:13 72 17 117/69 100 Intake and Output (Last 8hrs): Intake & Output 12/17/16 12/17/16 12/17/16 06:59 14:59 22:59 Intake Total 1775 1210 Output Total 705 800 Balance 1070 410 Intake: Intake, IV Amount 750 750 Right Hand 125 right AC side port 750 625 Oral 450 460 Blood Product 575 Red Blood Cells Cpd As1 325 Lr Unit [id number] Output: Drainage 30 right abdomen 30 Urine 675 800 Urethral (Marcos) 675 800 Other: # Bowel Movements 0 - Physical Exam Head: Positive for: Atraumatic, Normocephalic Pupils: Positive for: PERRL Mouth: Positive for: Moist Mucous Membranes Respiratory/Chest: Positive for: Clear to Auscultation, Good Air Exchange Cardiovascular: Positive for: Normal S1, S2 Abdomen: Positive for: Tenderness, Normal Bowel Sounds, Other (bandages in place , C/D/I). Negative for: Distention Upper Extremity: Positive for: NORMAL PULSES Lower Extremity: Positive for: NORMAL PULSES Neurological: Positive for: Speech Normal Skin: Positive for: Warm, Dry Psychiatric: Positive for: Alert, Oriented x 3 - Medications Active Medications: Active Medications Generic Name Dose Route Start Last Admin Trade Name Freq PRN Reason Stop Dose Admin Docusate Sodium 100 mg 12/15/16 18:00 12/17/16 13:30 Colace PO 100 mg TID JACK Administration Ondansetron HCl 4 mg 12/15/16 09:37 Zofran Inj IVP Q4 PRN Nausea/Vomiting Oxycodone/Acetaminophen 1 tab 12/17/16 10:12/17/16 13:28 Percocet 5/325 Mg Tab PO 12/20/16 10:06 1 tab Q4H PRN Administration Pain, moderate (4-7) Pantoprazole Sodium 40 mg 12/16/16 10:00 12/17/16 09:46 Protonix Inj IVP 40 mg DAILY JACK Administration - Patient Studies Lab Studies: Microbiology Studies 12/15/16 Unknown Urine Culture - Final Urine,Catheterized No Growth (<1,000 CFU/ML) 12/15/16 21:00 MRSA Culture (Admit) - Final Naris MRSA NOT DETECTED Lab Studies 12/17/16 12/17/16 12/17/16 Range/Units 14:55 06:22 06:22 WBC 10.1 11.9 H (4.8-10.8) K/uL RBC 2.87 L 2.76 L (3.80-5.20) Mil/uL Hgb 8.6 L 8.3 L (11.0-16.0) g/dL Hct 25.5 L 24.3 L (34.0-47.0) % MCV 88.7 88.2 (81.0-99.0) fL MCH 29.9 30.0 (27.0-31.0) pg MCHC 33.7 34.0 (33.0-37.0) g/dL RDW 16.2 H 16.2 H (11.5-14.5) % Plt Count 221 194 (130-400) K/uL MPV 7.6 8.3 (7.2-11.7) fL Neut % (Auto) 56.9 (50.0-75.0) % Lymph % (Auto) 34.1 (20.0-40.0) % Barnwell % (Auto) 6.5 (0.0-10.0) % Eos % (Auto) 1.9 (0.0-4.0) % Baso % (Auto) 0.6 (0.0-2.0) % Neut # 5.7 (1.8-7.0) K/uL Lymph # 3.4 (1.0-4.3) K/uL Barnwell # 0.7 (0.0-0.8) K/uL Eos # 0.2 (0.0-0.7) K/uL Baso # 0.1 (0.0-0.2) K/uL PT (9.7-12.2) SECONDS INR APTT (21-34) SECONDS Sodium 134 (132-148) mmol/L Potassium 3.8 (3.6-5.2) mmol/L Chloride 102 (98-107) mmol/L Carbon Dioxide 25 (22-30) mmol/L Anion Gap 11 (10-20) BUN 9 (7-17) mg/dL Creatinine 0.6 L (0.7-1.2) MG/DL Est GFR ( Amer) > 60 Est GFR (Non-Af Amer) > 60 Random Glucose 111 H (65-105) mg/dL Calcium 7.0 L (8.6-10.4) mg/dl Blood Type Antibody Screen 12/16/16 12/16/16 12/16/16 Range/Units 16:19 16:19 16:19 WBC 13.1 H (4.8-10.8) K/uL RBC 2.41 L (3.80-5.20) Mil/uL Hgb 7.2 L (11.0-16.0) g/dL Hct 21.6 L (34.0-47.0) % MCV 89.7 (81.0-99.0) fL MCH 30.0 (27.0-31.0) pg MCHC 33.5 (33.0-37.0) g/dL RDW 15.5 H (11.5-14.5) % Plt Count 196 (130-400) K/uL MPV 8.4 (7.2-11.7) fL Neut % (Auto) (50.0-75.0) % Lymph % (Auto) (20.0-40.0) % Barnwell % (Auto) (0.0-10.0) % Eos % (Auto) (0.0-4.0) % Baso % (Auto) (0.0-2.0) % Neut # (1.8-7.0) K/uL Lymph # (1.0-4.3) K/uL Barnwell # (0.0-0.8) K/uL Eos # (0.0-0.7) K/uL Baso # (0.0-0.2) K/uL PT 15.2 H (9.7-12.2) SECONDS INR 1.3 APTT 27 (21-34) SECONDS Sodium 136 (132-148) mmol/L Potassium 3.4 L (3.6-5.2) mmol/L Chloride 102 (98-107) mmol/L Carbon Dioxide 26 (22-30) mmol/L Anion Gap 11 (10-20) BUN 9 (7-17) mg/dL Creatinine 0.7 (0.7-1.2) MG/DL Est GFR ( Amer) > 60 Est GFR (Non-Af Amer) > 60 Random Glucose 103 (65-105) mg/dL Calcium 7.3 L (8.6-10.4) mg/dl Blood Type Antibody Screen 12/15/16 Range/Units 17:09 WBC (4.8-10.8) K/uL RBC (3.80-5.20) Mil/uL Hgb (11.0-16.0) g/dL Hct (34.0-47.0) % MCV (81.0-99.0) fL MCH (27.0-31.0) pg MCHC (33.0-37.0) g/dL RDW (11.5-14.5) % Plt Count (130-400) K/uL MPV (7.2-11.7) fL Neut % (Auto) (50.0-75.0) % Lymph % (Auto) (20.0-40.0) % Barnwell % (Auto) (0.0-10.0) % Eos % (Auto) (0.0-4.0) % Baso % (Auto) (0.0-2.0) % Neut # (1.8-7.0) K/uL Lymph # (1.0-4.3) K/uL Barnwell # (0.0-0.8) K/uL Eos # (0.0-0.7) K/uL Baso # (0.0-0.2) K/uL PT (9.7-12.2) SECONDS INR APTT (21-34) SECONDS Sodium (132-148) mmol/L Potassium (3.6-5.2) mmol/L Chloride (98-107) mmol/L Carbon Dioxide (22-30) mmol/L Anion Gap (10-20) BUN (7-17) mg/dL Creatinine (0.7-1.2) MG/DL Est GFR ( Amer) Est GFR (Non-Af Amer) Random Glucose (65-105) mg/dL Calcium (8.6-10.4) mg/dl Blood Type A POSITIVE Antibody Screen Negative Laboratory Results - last 24 hr 12/15/16 12/16/16 12/16/16 17:09 16:19 16:19 WBC 13.1 H RBC 2.41 L Hgb 7.2 L Hct 21.6 L MCV 89.7 MCH 30.0 MCHC 33.5 RDW 15.5 H Plt Count 196 MPV 8.4 Neut % (Auto) Lymph % (Auto) Barnwell % (Auto) Eos % (Auto) Baso % (Auto) Neut # Lymph # Barnwell # Eos # Baso # PT 15.2 H INR 1.3 APTT 27 Sodium Potassium Chloride Carbon Dioxide Anion Gap BUN Creatinine Est GFR ( Amer) Est GFR (Non-Af Amer) Random Glucose Calcium Blood Type A POSITIVE Antibody Screen Negative 12/16/16 12/17/16 12/17/16 16:19 06:22 06:22 WBC 11.9 H RBC 2.76 L Hgb 8.3 L Hct 24.3 L MCV 88.2 MCH 30.0 MCHC 34.0 RDW 16.2 H Plt Count 194 MPV 8.3 Neut % (Auto) Lymph % (Auto) Barnwell % (Auto) Eos % (Auto) Baso % (Auto) Neut # Lymph # Barnwell # Eos # Baso # PT INR APTT Sodium 136 134 Potassium 3.4 L 3.8 Chloride 102 102 Carbon Dioxide 26 25 Anion Gap 11 11 BUN 9 9 Creatinine 0.7 0.6 L Est GFR ( Amer) > 60 > 60 Est GFR (Non-Af Amer) > 60 > 60 Random Glucose 103 111 H Calcium 7.3 L 7.0 L Blood Type Antibody Screen 12/17/16 14:55 WBC 10.1 RBC 2.87 L Hgb 8.6 L Hct 25.5 L MCV 88.7 MCH 29.9 MCHC 33.7 RDW 16.2 H Plt Count 221 MPV 7.6 Neut % (Auto) 56.9 Lymph % (Auto) 34.1 Barnwell % (Auto) 6.5 Eos % (Auto) 1.9 Baso % (Auto) 0.6 Neut # 5.7 Lymph # 3.4 Barnwell # 0.7 Eos # 0.2 Baso # 0.1 PT INR APTT Sodium Potassium Chloride Carbon Dioxide Anion Gap BUN Creatinine Est GFR ( Amer) Est GFR (Non-Af Amer) Random Glucose Calcium Blood Type Antibody Screen Review of Systems - Review of Systems All systems: reviewed and no additional remarkable complaints except (where noted in HPI) Critical Care Progress Note - Nutrition Nutrition: Nutrition Category Date Time Status Liquid Diet [DIET] Diets 12/16/16 Breakfast Active Assessment/Plan - Assessment and Plan (Free Text) Assessment: This is a 41 yo F with cholecystitis that is s/p lap nova with postoperative bleeding requiring multiple blood transfusions, POD#2 Plan: Neuro: AAOx 3, monitor Cardiovascular: BP stable Will d/c IVF, good PO intake Monitor and maintain MAP of >65 Pulmonary: Saturating well, no respiratory distress Monitor Maintain Spo2 >90 Gastrointestinal: Incision site clean, dry and intact Liquid diet Hematology: Hgb uptrending, now 8.6 s/p 6 units PRBC, 4 units FFP, and 1 unit cryo Monitor for s/s's of bleeding Endocrine: No acute issues Renal: No acute issues Infectious Disease: Afebrile, no leukocytosis GI Prophylaxis: Protonix DVT Prophylaxis: Not indicated Dispo - Transfer to med/surg for further monitoring <Jordan Mcmahan - Last Filed: 12/17/16 17:27> CCU Objective - Vital Signs / Intake & Output Vital Signs (Last 4 hours): Vital Signs Pulse Resp BP Pulse Ox 12/17/16 14:13 84 16 109/67 99 Intake and Output (Last 8hrs): Intake & Output 12/17/16 12/17/16 12/17/16 06:59 14:59 22:59 Intake Total 1775 1450 Output Total 705 800 Balance 1070 650 Intake: Intake, IV Amount 750 750 Right Hand 125 right AC side port 750 625 Oral 450 700 Blood Product 575 Red Blood Cells Cpd As1 325 Lr Unit [id number] Output: Drainage 30 right abdomen 30 Urine 675 800 Urethral (Marcos) 675 800 Other: # Bowel Movements 0 - Medications Active Medications: Active Medications Generic Name Dose Route Start Last Admin Trade Name Freq PRN Reason Stop Dose Admin Docusate Sodium 100 mg 12/15/16 18:00 12/17/16 13:30 Colace PO 100 mg TID JACK Administration Ondansetron HCl 4 mg 12/15/16 09:37 Zofran Inj IVP Q4 PRN Nausea/Vomiting Oxycodone/Acetaminophen 1 tab 12/17/16 10:05 12/17/16 13:28 Percocet 5/325 Mg Tab PO 12/20/16 10:06 1 tab Q4H PRN Administration Pain, moderate (4-7) Pantoprazole Sodium 40 mg 12/16/16 10:00 12/17/16 09:46 Protonix Inj IVP 40 mg DAILY JACK Administration - Patient Studies Lab Studies: Microbiology Studies 12/15/16 Unknown Urine Culture - Final Urine,Catheterized No Growth (<1,000 CFU/ML) 12/15/16 21:00 MRSA Culture (Admit) - Final Naris MRSA NOT DETECTED Lab Studies 12/17/16 12/17/16 12/17/16 Range/Units 14:55 06:22 06:22 WBC 10.1 11.9 H (4.8-10.8) K/uL RBC 2.87 L 2.76 L (3.80-5.20) Mil/uL Hgb 8.6 L 8.3 L (11.0-16.0) g/dL Hct 25.5 L 24.3 L (34.0-47.0) % MCV 88.7 88.2 (81.0-99.0) fL MCH 29.9 30.0 (27.0-31.0) pg MCHC 33.7 34.0 (33.0-37.0) g/dL RDW 16.2 H 16.2 H (11.5-14.5) % Plt Count 221 194 (130-400) K/uL MPV 7.6 8.3 (7.2-11.7) fL Neut % (Auto) 56.9 (50.0-75.0) % Lymph % (Auto) 34.1 (20.0-40.0) % Barnwell % (Auto) 6.5 (0.0-10.0) % Eos % (Auto) 1.9 (0.0-4.0) % Baso % (Auto) 0.6 (0.0-2.0) % Neut # 5.7 (1.8-7.0) K/uL Lymph # 3.4 (1.0-4.3) K/uL Barnwell # 0.7 (0.0-0.8) K/uL Eos # 0.2 (0.0-0.7) K/uL Baso # 0.1 (0.0-0.2) K/uL Sodium 134 (132-148) mmol/L Potassium 3.8 (3.6-5.2) mmol/L Chloride 102 (98-107) mmol/L Carbon Dioxide 25 (22-30) mmol/L Anion Gap 11 (10-20) BUN 9 (7-17) mg/dL Creatinine 0.6 L (0.7-1.2) MG/DL Est GFR ( Amer) > 60 Est GFR (Non-Af Amer) > 60 Random Glucose 111 H (65-105) mg/dL Calcium 7.0 L (8.6-10.4) mg/dl Blood Type Antibody Screen 12/15/16 Range/Units 17:09 WBC (4.8-10.8) K/uL RBC (3.80-5.20) Mil/uL Hgb (11.0-16.0) g/dL Hct (34.0-47.0) % MCV (81.0-99.0) fL MCH (27.0-31.0) pg MCHC (33.0-37.0) g/dL RDW (11.5-14.5) % Plt Count (130-400) K/uL MPV (7.2-11.7) fL Neut % (Auto) (50.0-75.0) % Lymph % (Auto) (20.0-40.0) % Barnwell % (Auto) (0.0-10.0) % Eos % (Auto) (0.0-4.0) % Baso % (Auto) (0.0-2.0) % Neut # (1.8-7.0) K/uL Lymph # (1.0-4.3) K/uL Barnwell # (0.0-0.8) K/uL Eos # (0.0-0.7) K/uL Baso # (0.0-0.2) K/uL Sodium (132-148) mmol/L Potassium (3.6-5.2) mmol/L Chloride (98-107) mmol/L Carbon Dioxide (22-30) mmol/L Anion Gap (10-20) BUN (7-17) mg/dL Creatinine (0.7-1.2) MG/DL Est GFR ( Amer) Est GFR (Non-Af Amer) Random Glucose (65-105) mg/dL Calcium (8.6-10.4) mg/dl Blood Type A POSITIVE Antibody Screen Negative Laboratory Results - last 24 hr 12/15/16 12/17/16 12/17/16 17:09 06:22 06:22 WBC 11.9 H RBC 2.76 L Hgb 8.3 L Hct 24.3 L MCV 88.2 MCH 30.0 MCHC 34.0 RDW 16.2 H Plt Count 194 MPV 8.3 Neut % (Auto) Lymph % (Auto) Barnwell % (Auto) Eos % (Auto) Baso % (Auto) Neut # Lymph # Barnwell # Eos # Baso # Sodium 134 Potassium 3.8 Chloride 102 Carbon Dioxide 25 Anion Gap 11 BUN 9 Creatinine 0.6 L Est GFR ( Amer) > 60 Est GFR (Non-Af Amer) > 60 Random Glucose 111 H Calcium 7.0 L Blood Type A POSITIVE Antibody Screen Negative 12/17/16 14:55 WBC 10.1 RBC 2.87 L Hgb 8.6 L Hct 25.5 L MCV 88.7 MCH 29.9 MCHC 33.7 RDW 16.2 H Plt Count 221 MPV 7.6 Neut % (Auto) 56.9 Lymph % (Auto) 34.1 Barnwell % (Auto) 6.5 Eos % (Auto) 1.9 Baso % (Auto) 0.6 Neut # 5.7 Lymph # 3.4 Barnwell # 0.7 Eos # 0.2 Baso # 0.1 Sodium Potassium Chloride Carbon Dioxide Anion Gap BUN Creatinine Est GFR ( Amer) Est GFR (Non-Af Amer) Random Glucose Calcium Blood Type Antibody Screen Critical Care Progress Note - Nutrition Nutrition: Nutrition Category Date Time Status Regular Diet [DIET] Diets 12/17/16 Dinner Active Attending/Attestation - Attestation I have personally seen and examined this patient.: Yes I have fully participated in the care of the patient.: Yes I have reviewed all pertinent clinical information: Yes Notes (Text): 12/17/16 17:26 Pt seen and examined on rounds with Dr. Dean and pt RN. All pertinent PN/labs/ meds/imaging reviewed personally and discussed with involved consultants. I agree with the assessment and plan as outlined above which reflects my direct input. improving adv diet d/c IVF, a-line, marcos monitor h/h oob/pt eval gi / dvt ppx transfer to med/surg Jordan Mcmahan MD
[2016-12-18] MEDS: Oxycodone/Acetaminophen 5/325 mg Tab PO PRN ×3 (04:06→20:42)
[2016-12-18 08:07] LABS: BASO % 0.5 % (0.0-2.0); EOS # 0.2 K/uL (0.0-0.7); EOS % 2.4 % (0.0-4.0); HEMATOCRIT 24.8 % (34.0-47.0); LYMPH # 2.6 K/uL (1.0-4.3); LYMPH % 29.9 % (20.0-40.0); MEAN CORPUSCULAR HEMOGLOBIN 30.3 pg (27.0-31.0); MEAN PLATELET VOLUME 7.9 fL (7.2-11.7); MONO # 0.5 K/uL (0.0-0.8); MONO % 5.5 % (0.0-10.0); RED CELL DISTRIBUTION WIDTH 16.2 % (11.5-14.5); WHITE BLOOD COUNT 8.8 K/uL (4.8-10.8)
[2016-12-18 08:10] LABS: CHLORIDE 100 mmol/L (98-107); POTASSIUM 3.6 mmol/L (3.6-5.2); SODIUM 133 mmol/L (132-148)
[2016-12-18 08:12] LABS: ALB/GLOB RATIO 0.8 (1.0-2.1); AST/SGOT 34 U/L (14-36); BILIRUBIN,TOTAL 0.9 mg/dL (0.2-1.3); CARBON DIOXIDE 27 mmol/L (22-30); GFR AFRICAN-AMERICAN > 60; TOTAL PROTEIN 5.6 g/dL (6.3-8.3)
[2016-12-18 08:13] LABS: ALKALINE PHOSPHATASE 81 U/L (38-126); ALT/SGPT 53 U/L (9-52); BLOOD UREA NITROGEN 6 mg/dL (7-17); CALCIUM 7.8 mg/dl (8.6-10.4); GLUCOSE,RANDOM 100 mg/dL (65-105); MAGNESIUM 2.3 mg/dL (1.6-2.3); PHOSPHOROUS 3.1 mg/dL (2.5-4.5)
--- NOTE | 2016-12-18 10:14 | CP.PCM.PN ---
Subjective - Date & Time of Evaluation Date of Evaluation: 12/18/16 Time of Evaluation: 07:00 - Subjective Subjective: GENERAL SURGERY PROGRESS NOTE FOR DR. HYMAN Patient seen and examined at bedside. She was transferred out of the ICU yesterday. She had a small BM last night. She is passing flatus. She reports some abdominal pain last night that resolved after she had the BM. Had some nausea last night which was relieved with Zofran. Denies vomiting. Objective - Vital Signs/Intake and Output Vital Signs (last 24 hours): Temp Pulse Resp BP Pulse Ox 98.0 F 75 20 113/76 100 12/18/16 08:26 12/18/16 08:26 12/18/16 08:26 12/18/16 08:26 12/18/16 08:26 Intake and Output: 12/18/16 12/18/16 06:59 18:59 Intake Total 200 Output Total 5 Balance 195 - Medications Medications: Current Medications Docusate Sodium (Colace) 100 mg PO TID [facility] Last Admin: 12/18/16 09:32 Dose: 100 mg Ondansetron HCl (Zofran Inj) 4 mg IVP Q4 PRN PRN Reason: Nausea/Vomiting Last Admin: 12/18/16 09:32 Dose: 4 mg Oxycodone/Acetaminophen (Percocet 5/325 Mg Tab) 1 tab PO Q4H PRN PRN Reason: Pain, moderate (4-7) Stop: 12/20/16 10:06 Last Admin: 12/18/16 04:06 Dose: 1 tab Pantoprazole Sodium (Protonix Inj) 40 mg IVP DAILY [facility] Last Admin: 12/18/16 09:32 Dose: 40 mg - Labs Labs: 12/18/16 07:49 12/18/16 07:49 PT 11.6 SECONDS (9.7-12.2) 12/18/16 07:49 INR 1.0 12/18/16 07:49 APTT 28 SECONDS (21-34) 12/18/16 07:49 - Constitutional Appears: Non-toxic, No Acute Distress - Head Exam Head Exam: ATRAUMATIC, NORMAL INSPECTION - Eye Exam Eye Exam: EOMI, Normal appearance - Respiratory Exam Respiratory Exam: NORMAL BREATHING PATTERN. absent: Respiratory Distress - Cardiovascular Exam Cardiovascular Exam: +S1, +S2 - GI/Abdominal Exam GI & Abdominal Exam: Soft, Tenderness (mild RUQ). absent: Distended, Firm, Guarding, Rigid, Rebound Additional comments: Dressings clean/dry/intact Alejandro drain in place with 55cc serous drainage over past 24 hours - Neurological Exam Neurological Exam: Alert, Awake, Oriented x3 - Psychiatric Exam Psychiatric exam: Normal Affect, Normal Mood - Skin Skin Exam: Normal Color, Warm Assessment and Plan - Assessment and Plan (Free Text) Assessment: 41yo F with cholecystitis s/p lap nova with subsequent ex-lap for post- operative bleeding, POD#3 - Afebrile, VSS - Hgb stable, 8.4 this AM (was 8.6 yesterday afternoon), continue to monitor H/H - Alejandro drain in place with 55cc serous drainage over past 24 hours - Continue percocet PRN - Tolerating regular diet - OOB and PT - Discussed plan with Dr. Livan Carmichael PGY-2
[2016-12-19 00:17] VITALS: O2SAT 100
[2016-12-19] MEDS: Oxycodone/Acetaminophen 5/325 mg Tab PO PRN (01:52)
[2016-12-19 08:10] LABS: BASO % 0.3 % (0.0-2.0); EOS # 0.2 K/uL (0.0-0.7); EOS % 2.8 % (0.0-4.0); LYMPH # 3.1 K/uL (1.0-4.3); LYMPH % 35.4 % (20.0-40.0); MEAN CELL VOLUME 90.1 fL (81.0-99.0); MEAN CORPUSCULAR HEMOGLOBIN 30.5 pg (27.0-31.0); MEAN CORPUSCULAR HGB CONC 33.8 g/dL (33.0-37.0); MEAN PLATELET VOLUME 8.1 fL (7.2-11.7); MONO # 0.6 K/uL (0.0-0.8); NRBC % 0.2 % (0.0-2.0); RED CELL DISTRIBUTION WIDTH 15.8 % (11.5-14.5); WHITE BLOOD COUNT 8.9 K/uL (4.8-10.8)
[2016-12-19 08:56] LABS: CHLORIDE 99 mmol/L (98-107)
[2016-12-19 08:57] LABS: POTASSIUM 3.7 mmol/L (3.6-5.2); SODIUM 135 mmol/L (132-148)
[2016-12-19 08:59] LABS: ALB/GLOB RATIO 0.9 (1.0-2.1); ALKALINE PHOSPHATASE 81 U/L (38-126); AST/SGOT 42 U/L (14-36); BILIRUBIN,TOTAL 0.6 mg/dL (0.2-1.3); BLOOD UREA NITROGEN 10 mg/dL (7-17); CARBON DIOXIDE 27 mmol/L (22-30); GFR AFRICAN-AMERICAN > 60; TOTAL PROTEIN 6.2 g/dL (6.3-8.3)
[2016-12-19 09:00] LABS: ALT/SGPT 68 U/L (9-52); CALCIUM 8.1 mg/dl (8.6-10.4); GLUCOSE,RANDOM 101 mg/dL (65-105)
--- NOTE | 2016-12-19 10:21 | CP.PCM.PN ---
Subjective - Date & Time of Evaluation Date of Evaluation: 12/19/16 Time of Evaluation: 07:00 - Subjective Subjective: GENERAL SURGERY PROGRESS NOTE FOR DR. HYMAN Patient seen and examined at bedside. She reports only mild abdominal pain when she walks. She is tolerating regular diet. Reports some mild nausea and denies vomiting. She had 2 soft BMs and is ambulating to the bathroom. Abdominal binder in place. This morning around 5AM, she complained of left calf pain and tenderness. Duplex US was ordered to rule out DVT. Denies CP or SOB. Objective - Vital Signs/Intake and Output Vital Signs (last 24 hours): Temp Pulse Resp BP Pulse Ox 98.7 F 71 18 117/56 L 100 12/19/16 09:03 12/19/16 09:03 12/19/16 09:03 12/19/16 09:03 12/19/16 09:03 Intake and Output: 12/19/16 12/19/16 06:59 18:59 Intake Total 320 Output Total 7 Balance 313 - Medications Medications: Current Medications Docusate Sodium (Colace) 100 mg PO TID [facility] Last Admin: 12/19/16 09:27 Dose: 100 mg Ondansetron HCl (Zofran Inj) 4 mg IVP Q4 PRN PRN Reason: Nausea/Vomiting Last Admin: 12/18/16 20:46 Dose: 4 mg Oxycodone/Acetaminophen (Percocet 5/325 Mg Tab) 1 tab PO Q4H PRN PRN Reason: Pain, moderate (4-7) Stop: 12/20/16 10:06 Last Admin: 12/19/16 01:52 Dose: 1 tab Pantoprazole Sodium (Protonix Inj) 40 mg IVP DAILY [facility] Last Admin: 12/19/16 09:26 Dose: 40 mg - Labs Labs: 12/19/16 07:43 12/19/16 07:43 PT 11.6 SECONDS (9.7-12.2) 12/18/16 07:49 INR 1.0 12/18/16 07:49 APTT 28 SECONDS (21-34) 12/18/16 07:49 - Constitutional Appears: Non-toxic, No Acute Distress - Eye Exam Eye Exam: EOMI, Normal appearance - Respiratory Exam Respiratory Exam: NORMAL BREATHING PATTERN. absent: Respiratory Distress - Cardiovascular Exam Cardiovascular Exam: +S1, +S2 - GI/Abdominal Exam GI & Abdominal Exam: Soft, Tenderness (mild tenderness at incision site). absent: Distended, Firm, Guarding, Rigid, Rebound Additional comments: Abdominal binder in place Alejandro drain in place with minimal serous drainage Dressing removed, dru in place - Extremities Exam Extremities Exam: Calf Tenderness (left), Normal Inspection Additional comments: Left calf tender, no erythema, no edema - Neurological Exam Neurological Exam: Alert, Awake, Oriented x3 - Psychiatric Exam Psychiatric exam: Normal Affect, Normal Mood - Skin Skin Exam: Dry, Warm Assessment and Plan - Assessment and Plan (Free Text) Assessment: 41yo F with cholecystitis s/p lap nova with subsequent ex-lap for post- operative bleeding, POD#4 - Afebrile, VSS - Hgb stable, 8.8 this AM (was 8.4 yesterday) - Alejandro drain with 7cc serous drainage over past 24 hours - Removed alejandro drain this AM - Continue percocet PRN - Tolerating regular diet - OOB and PT - Ordered stat venous duplex US due to left calf pain and tenderness - Discussed plan with Dr. Livan Carmichael PGY-2
[2016-12-19 22:41] VITALS: BP 133/85; PULSE 74; RESP 20; TEMP 99.4
--- NOTE | 2016-12-20 09:24 | CP.PCM.DIS ---
Provider - Provider Date of Admission: 12/15/16 09:34 Attending physician: Momo Licona MD Primary care physician: Non [facility] Provider Time Spent in preparation of Discharge (in minutes): 15 Diagnosis - Discharge Diagnosis (1) Acute cholecystitis Status: Acute Priority: High Onset Date: ~12/13/16 (2) Acute bleeding Status: Acute Priority: High Onset Date: ~12/14/16 Hospital Course - Lab Results Lab Results: Micro Results 12/18/16 00:34 Naris MRSA Culture - Final MRSA NOT DETECTED 12/15/16 Unknown Urine,Catheterized Urine Culture - Final No Growth (<1,000 CFU/ML) 12/15/16 21:00 Naris MRSA Culture (Admit) - Final MRSA NOT DETECTED Most Recent Lab Values WBC 8.9 K/uL (4.8-10.8) 12/19/16 07:43 RBC 2.88 Mil/uL (3.80-5.20) L 12/19/16 07:43 Hgb 8.8 g/dL (11.0-16.0) L 12/19/16 07:43 Hct 26.0 % (34.0-47.0) L 12/19/16 07:43 MCV 90.1 fL (81.0-99.0) 12/19/16 07:43 MCH 30.5 pg (27.0-31.0) 12/19/16 07:43 MCHC 33.8 g/dL (33.0-37.0) 12/19/16 07:43 RDW 15.8 % (11.5-14.5) H 12/19/16 07:43 Plt Count 302 K/uL (130-400) 12/19/16 07:43 MPV 8.1 fL (7.2-11.7) 12/19/16 07:43 Neut % (Auto) 54.5 % (50.0-75.0) 12/19/16 07:43 Lymph % (Auto) 35.4 % (20.0-40.0) 12/19/16 07:43 [place] % (Auto) 7.0 % (0.0-10.0) 12/19/16 07:43 Eos % (Auto) 2.8 % (0.0-4.0) 12/19/16 07:43 Baso % (Auto) 0.3 % (0.0-2.0) 12/19/16 07:43 Neut # 4.8 K/uL (1.8-7.0) 12/19/16 07:43 Lymph # 3.1 K/uL (1.0-4.3) 12/19/16 07:43 [place] # 0.6 K/uL (0.0-0.8) 12/19/16 07:43 Eos # 0.2 K/uL (0.0-0.7) 12/19/16 07:43 Baso # 0.0 K/uL (0.0-0.2) 12/19/16 07:43 Neutrophils % (Manual) 88 % (50-75) H 12/15/16 17:09 Band Neutrophils % 1 % (0-2) 12/15/16 17:09 Lymphocytes % (Manual) 6 % (20-40) L 12/15/16 17:09 Monocytes % (Manual) 5 % (0-10) 12/15/16 17:09 Platelet Estimate Normal (NORMAL) 12/15/16 17:09 RBC Morphology Normal 12/15/16 17:09 PT 11.6 SECONDS (9.7-12.2) 12/18/16 07:49 INR 1.0 12/18/16 07:49 APTT 28 SECONDS (21-34) 12/18/16 07:49 Puncture Site [place] 12/15/16 20:50 pCO2 39 mm/Hg (35-45) 12/15/16 20:50 pO2 64 mm/Hg (80-100) L 12/15/16 20:50 HCO3 23.4 mmol/L (21-28) 12/15/16 20:50 ABG pH 7.38 (7.35-7.45) 12/15/16 20:50 ABG Total CO2 24.3 mmol/L (22-28) 12/15/16 20:50 ABG O2 Saturation 97.5 % (95-98) 12/15/16 20:50 ABG Base Excess -1.8 mmol/L (-2.0-3.0) 12/15/16 20:50 Benitez Test Na 12/15/16 20:50 ABG Potassium 3.5 mmol/L (3.6-5.2) L 12/15/16 20:50 A-a O2 Difference 37.0 mm/Hg 12/15/16 20:50 Respiratory Index 0.6 12/15/16 20:50 Sodium 135.0 mmol/l (132-148) 12/15/16 20:50 Chloride 108.0 mmol/L (98-107) H 12/15/16 20:50 Glucose 188 mg/dl (65-105) H 12/15/16 20:50 Lactate 1.9 mmol/L (0.7-2.1) 12/15/16 20:50 FiO2 21.0 % 12/15/16 20:50 Sodium 135 mmol/L (132-148) 12/19/16 07:43 Potassium 3.7 mmol/L (3.6-5.2) 12/19/16 07:43 Chloride 99 mmol/L (98-107) 12/19/16 07:43 Carbon Dioxide 27 mmol/L (22-30) 12/19/16 07:43 Anion Gap 13 (10-20) 12/19/16 07:43 BUN 10 mg/dL (7-17) 12/19/16 07:43 Creatinine 0.7 MG/DL (0.7-1.2) 12/19/16 07:43 Est GFR ( Amer) > 60 12/19/16 07:43 Est GFR (Non-Af Amer) > 60 12/19/16 07:43 Random Glucose 101 mg/dL (65-105) 12/19/16 07:43 Calcium 8.1 mg/dl (8.6-10.4) L 12/19/16 07:43 Phosphorus 3.1 mg/dL (2.5-4.5) 12/18/16 07:49 Magnesium 2.3 mg/dL (1.6-2.3) 12/18/16 07:49 Total Bilirubin 0.6 mg/dL (0.2-1.3) 12/19/16 07:43 AST 42 U/L (14-36) H D 12/19/16 07:43 ALT 68 U/L (9-52) H D 12/19/16 07:43 Alkaline Phosphatase 81 U/L (38-126) 12/19/16 07:43 Total Protein 6.2 g/dL (6.3-8.3) L 12/19/16 07:43 Albumin 3.0 g/dL (3.5-5.0) L D 12/19/16 07:43 Globulin 3.2 gm/dL (2.2-3.9) 12/19/16 07:43 Albumin/Globulin Ratio 0.9 (1.0-2.1) L 12/19/16 07:43 Lipase 73 U/L (23-300) 12/15/16 06:48 TSH 3rd Generation 0.91 mIU/L (0.46-4.68) 12/15/16 20:58 Plasma Cortisol PM 22.1 ug/dL (1.7-14.1) H 12/15/16 20:58 Arterial Blood Potassium 3.5 mmol/L (3.6-5.2) L 12/15/16 20:50 Urine Color Colette (YELLOW) 12/15/16 18:33 Urine Clarity Hazy (Clear) 12/15/16 18:33 Urine pH 5.0 (5.0-8.0) 12/15/16 18:33 Ur Specific [place] 1.032 (1.003-1.030) H 12/15/16 18:33 Urine Protein 2+ mg/dL (NEGATIVE) H 12/15/16 18:33 Urine Glucose (UA) 1+ mg/dL (Normal) 12/15/16 18:33 Urine Ketones Trace mg/dL (NEGATIVE) 12/15/16 18:33 Urine Blood Negative (NEGATIVE) 12/15/16 18:33 Urine Nitrate Negative (NEGATIVE) 12/15/16 18:33 Urine Bilirubin Negative (NEGATIVE) 12/15/16 18:33 Urine Urobilinogen Normal mg/dL (0.2-1.0) 12/15/16 18:33 Ur Leukocyte Esterase Neg Benny/uL (Negative) 12/15/16 18:33 Urine WBC (Auto) 2 /hpf (0-5) 12/15/16 08:03 Urine RBC (Auto) 2 /hpf (0-3) 12/15/16 08:03 Ur Squamous Epith Cells 2 /hpf (0-5) 12/15/16 18:33 Urine Bacteria Occ (<OCC) H 12/15/16 18:33 Urine HCG, Qual Negative (NEGATIVE) 12/15/16 08:03 Blood Type A POSITIVE 12/15/16 17:09 Antibody Screen Negative 12/15/16 17:09 - Hospital Course Hospital Course: Patient admitted for acute cholecystitis, underwent laparoscopic cholecystectomy. Return to OR 3 hours postop due to hemoperitoneum, no definite sit of bleeding identified. Postop course uneventful, patient received PRBC and FFP transfusion, H/H stable at time of discharge - Date & Time of H&P Date of H&P: 12/13/16 Discharge Exam - Head Exam Head Exam: ATRAUMATIC, NORMAL INSPECTION - Eye Exam Eye Exam: Normal appearance. absent: Scleral icterus Pupil Exam: PERRL - ENT Exam ENT Exam: Mucous Membranes Moist - Neck Exam Neck exam: Full Rom - Respiratory Exam Respiratory Exam: NORMAL BREATHING PATTERN, UNREMARKABLE - Cardiovascular Exam Cardiovascular Exam: REGULAR RHYTHM - GI/Abdominal Exam GI & Abdominal Exam: Normal Bowel Sounds Additional comments: Incision clean, dry. Incisional tenderness - Extremities Exam Extremities exam: full ROM - Neurological Exam Neurological exam: Oriented x3 Discharge Plan - Discharge Medications Prescriptions: oxyCODONE/Acetaminophen [Percocet 5/325 mg Tab] 1 tab PO Q4H PRN #12 tab PRN Reason: Pain, Moderate (4-7) - Follow Up Plan Condition: STABLE Disposition: HOME/ ROUTINE Instructions: Famotidine (By mouth), Oxycodone/Acetaminophen (By mouth), Laparoscopic Cholecystectomy (DC) Additional Instructions: 1) Follow up with Dr Licona, in 1-2 weeks 2) Patient can return to work in 7days. 3) Continue ambulation. Avoid heavy lifting 4) Staple will be removed during office visit 5) Can shower but not bath 6) Take prescribed medications as directed Referrals: Momo Licona MD [Staff Provider] - Non [facility] Provider, [Primary Care Provider] - Clinical Quality Measures - Date & Time of Discharge Summary Date of Discharge Summary: 12/20/16 Time of Discharge Summary: 09:28
--- NOTE | 2016-12-21 10:18 | VASCLAB ---
PROCEDURE: Lower Extremity Venous Duplex Exam. HISTORY: left calf pain and tenderness PRIORS: None. TECHNIQUE: Bilateral common femoral, femoral, popliteal and posterior tibial, peroneal and great saphenous veins were evaluated. Flow was assessed with color Doppler, compressibility, assessment of phasic flow and augmentation response. Report prepared by Ry Alston, LYNNE, RVT FINDINGS: RIGHT: 1. Common Femoral Vein: 1.1. Compressibility - Fully compressible: Thrombus - None : Flow - Phasic: Augmentation -Normal: Reflux - None. 2. Femoral Vein: 2.1. Compressibility - Fully compressible: Thrombus - None : Flow - Phasic: Augmentation -Normal: Reflux - None. 3. Popliteal Vein: 3.1. Compressibility - Fully compressible: Thrombus - None : Flow - Phasic: Augmentation -Normal: Reflux - None. 4. Posterior Tibial Vein: 4.1. Compressibility - Fully compressible: Thrombus - None: Flow - Phasic: Augmentation -Normal: Reflux - None. 5. Peroneal Vein: 5.1. Compressibility - Fully compressible: Thrombus - None: Flow - Phasic: Augmentation -Normal: Reflux - None. 6. Great Saphenous Vein: 6.1. Compressibility - Fully compressible: Thrombus - None: Flow - Phasic: Augmentation - Normal: Reflux - None. LEFT: 1. Common Femoral Vein: 1.1. Compressibility - Fully compressible: Thrombus - None: Flow - Phasic: Augmentation -Normal: Reflux - None. 2. Femoral Vein: 2.1. Compressibility - Fully compressible: Thrombus - None: Flow - Phasic: Augmentation -Normal: Reflux - None. 3. Popliteal Vein: 3.1. Compressibility - Fully compressible: Thrombus - None : Flow - Phasic: Augmentation -Normal: Reflux - None. 4. Posterior Tibial Vein: 4.1. Compressibility - Fully compressible: Thrombus - None: Flow - Phasic: Augmentation -Normal: Reflux - None. 5. Peroneal Vein: 5.1. Compressibility - Fully compressible: Thrombus - None: Flow - Phasic: Augmentation -Normal: Reflux - None. 6. Great Saphenous Vein: 6.1. Compressibility - Fully compressible: Thrombus - None: Flow - Phasic: Augmentation - Normal: Reflux - None. OTHER FINDINGS: Right: None significant. Left: None significant. IMPRESSION: Right: No evidence of deep or superficial vein thrombosis of the right lower extremity. Normal valve function noted of the right side. Left: No evidence of deep or superficial vein thrombosis of the left lower extremity. Normal valve function noted of the left side.
--- NOTE | 2016-12-31 16:38 | CARD ---
APPROVED REPORT EKG Measurement Heart [id number] <Conclusion> Normal sinus rhythm Normal ECG
== END 2016-12-19 20:10 | disposition home or self-care (01) | DRG 556 ==
LOC: SUPCPDRO 06:20 → C.ER 06:20 → C.9E 09:34 → C.3T 11:03 → C.9I 19:32 → C.6T 12-18 02:19
PROVIDERS: ADMIT Specialist; ATTEND Specialist
PROC: 0W9G0ZZ Drainage of Peritoneal Cavity, Open Approach (ICD-10-PCS; 2016-12-15)
PROC: 30233K1 Transfusion of Nonautologous Frozen Plasma into Peripheral Vein, Percutaneous Approach (ICD-10-PCS; 2016-12-15)
PROC: 30233N1 Transfusion of Nonautologous Red Blood Cells into Peripheral Vein, Percutaneous Approach (ICD-10-PCS; 2016-12-15)
PROC: 30233M1 Transfusion of Nonautologous Plasma Cryoprecipitate into Peripheral Vein, Percutaneous Approach (ICD-10-PCS; 2016-12-15)
PROC: 0FT44ZZ Resection of Gallbladder, Percutaneous Endoscopic Approach (ICD-10-PCS; principal; 2016-12-15 12:30)
DX: K80.12 Calculus of gallbladder with acute and chronic cholecystitis without obstruction (principal); K91.840 Postprocedural hemorrhage of a digestive system organ or structure following a digestive system procedure; K66.1 Hemoperitoneum; I95.81 Postprocedural hypotension; M79.662 Pain in left lower leg; M17.0 Bilateral primary osteoarthritis of knee; Z87.440 Personal history of urinary (tract) infections

== ENCOUNTER 2017-07-14 07:23 | Emergency (ER) | payer MEDICAID ==
[2017-07-14 07:28] VITALS: BMI 35.3
[2017-07-14 07:37] VITALS: BP 128/68; PULSE 68; RESP 18; TEMP 97.9; O2SAT 100
[2017-07-14] MEDS ORDERED: Naproxen 550 mg Tab PO STA (07:42)
--- NOTE | 2017-07-14 07:44 | C.PDOC ---
History Of Present Illness 41 year old female presents to ED for evaluation of left foot pain and swelling for the last 2 months. Notes being seen by her wide load escort this week, had x-ray taken which showed left heel spur, and she was also diagnosed with plantar fasciitis. Pt was instructed to start physical therapy but has not started yet due to insurance reasons. She has not tried taking any medication for pain. Patient denies falls/injuries, chest pain, palpitations, shortness of breath, or fever. Time Seen by Provider: 07/14/17 07:29 Chief Complaint (Nursing): Lower Extremity Problem/Injury History Per: Patient History/Exam Limitations: no limitations Onset/Duration Of Symptoms: Days Current Symptoms Are (Timing): Still Present Severity: Mild Past Medical History Reviewed: Historical Data, Nursing Documentation, Vital Signs Vital Signs: Last Vital Signs Temp 97.9 F 07/14/17 07:28 Pulse 68 07/14/17 07:28 Resp 18 07/14/17 07:28 BP 128/68 07/14/17 07:28 Pulse Ox 100 07/14/17 08:39 - Medical History PMH: Arthritis, Gastritis Surgical History: Cholecystectomy - [facility] Procedures BILAT TUBAL DIVISION NEC (01/12/14) DRAINAGE OF PERITONEAL CAVITY, OPEN APPROACH (12/15/16) LOCAL DESTR OVA LES NEC (01/12/14) LOW CERVICAL (01/12/14) RESECTION OF GALLBLADDER, PERCUTANEOUS ENDOSCOPIC APPROACH (12/15/16) TRANSFUSE NONAUT FROZEN PLASMA IN PERIPH VEIN, PERC (12/15/16) TRANSFUSE NONAUT PLASMA CRYOPRECIP IN PERIPH VEIN, PERC (12/15/16) TRANSFUSE NONAUT RED BLOOD CELLS IN PERIPH VEIN, PERC (12/15/16) Family History: States: No Known Family Hx - Social History Hx Tobacco Use: No Hx Alcohol Use: No Hx Substance Use: No - Immunization History Hx Tetanus Toxoid Vaccination: No Hx Influenza Vaccination: Yes Hx Pneumococcal Vaccination: No Review Of Systems Except As Marked, All Systems Reviewed And Found Negative. Constitutional: Negative for: Fever, Chills Cardiovascular: Negative for: Chest Pain, Palpitations Respiratory: Negative for: Cough, Shortness of Breath Musculoskeletal: Positive for: Foot Pain (left foot pain and swelling) Skin: Negative for: Rash Neurological: Negative for: Weakness, Numbness Physical Exam - Physical Exam Appears: Well, Non-toxic, Other (in mild pain) Skin: Normal Color, Warm, Dry, No Rash, No Other (no erythema to legs or feet) Head: Atraumatic, Normacephalic Eye(s): bilateral: Normal Inspection Oral Mucosa: Moist Cardiovascular: Rhythm Regular Respiratory: Normal Breath Sounds, No Rales, No Rhonchi, No Wheezing Extremity: Normal ROM (FROM of left ankle and toes), Tenderness (mild tenderness to plantar aspect of left foot and left heel ), No Calf Tenderness, Capillary Refill (< 2 seconds all digits ), No Deformity, Swelling (mild swelling over the left foot) Extremity: Bilateral: Normal Color And Temperature, Normal ROM Pulses: Left Dorsalis Pedis: Normal, Right Dorsalis Pedis: Normal Neurological/Psych: Oriented x3, Normal Motor, Normal Sensation Gait: Steady ED Course And Treatment O2 Sat by Pulse Oximetry: 100 (RA) Pulse Ox Interpretation: Normal Progress Note: Patient was given PO Naproxen in ED with improvement of pain. Rxs for compression stockings and Naprosyn given. Patient already s/p Xray and podiatry evaluation. She was instructed to follow up with podiatry and go for physical therapy as instructed. Patient understands she should return to ED if symtpoms worsen. Disposition Counseled Patient/Family Regarding: Diagnosis, Need For Followup, Rx Given - Disposition Referrals: [facility] [Outside] Disposition: HOME/ ROUTINE Disposition Time: 08:00 Condition: STABLE Additional Instructions: FOLLOW UP WITH YOUR DATA DELIVERABLES MANAGER SCHEDULED GO TO PHYSICAL THERAPY SCHEDULED USE MEDICATION AND COMPRESSION STOCKINGS INSTRUCTED RETURN TO ER IF SYMPTOMS WORSEN Prescriptions: Compression Socks, Medium [Futuro Restoring] 1 each MC DAILY PRN #1 each PRN Reason: LEG EDEMA Naproxen 375 mg PO BID PRN #20 tablet PRN Reason: pain Instructions: Arthralgia (ED) Forms: [facility] (Turkish) Print Language: ENGLISH - POA Present On Arrival: None - Clinical Impression Clinical Impression: Heel spur, Foot pain, left - Scribe Statement The provider has reviewed the documentation as recorded by the Jose Eduardoibnoemy Walton All medical record entries made by the Jose Eduardoibnoemy were at my direction and personally dictated by me. I have reviewed the chart and agree that the record accurately reflects my personal performance of the history, physical exam, medical decision making, and the department course for this patient. I have also personally directed, reviewed, and agree with the discharge instructions and disposition.
[2017-07-14] MEDS ORDERED: Naproxen 550 mg Tab PO ONE (08:18)
== END 2017-07-14 08:25 | disposition home or self-care (01) ==
LOC: C.ER 07:23
DX: M77.32 Calcaneal spur, left foot (principal); M79.672 Pain in left foot

== ENCOUNTER 2017-09-14 09:37 | Emergency (ER) | payer MEDICAID ==
[2017-09-14 09:37] VITALS: BMI 35.3
[2017-09-14 10:01] VITALS: RESP 18; O2SAT 100
--- NOTE | 2017-09-14 11:57 | CT ---
PROCEDURE: CT HEAD WITHOUT CONTRAST. HISTORY: numbness COMPARISON: None available. TECHNIQUE: Axial computed tomography images were obtained through the head/brain without intravenous contrast. Radiation dose: Total exam DLP = 820.70 mGy-cm. This CT exam was performed using one or more of the following dose reduction techniques: Automated exposure control, adjustment of the mA and/or kV according to patient size, and/or use of iterative reconstruction technique. FINDINGS: HEMORRHAGE: No intracranial hemorrhage. BRAIN: No mass effect or edema. The delgadillo-white matter differentiation appears intact. Please note that MRI with diffusion imaging is more sensitive in the detection of acute ischemic event. VENTRICLES: No hydrocephalus. CALVARIUM: Unremarkable. PARANASAL SINUSES: Mild mucosal thickening of the ethmoid air cells. MASTOID AIR CELLS: Unremarkable as visualized. No inflammatory changes. OTHER FINDINGS: None. IMPRESSION: No acute intracranial pathology identified.
--- NOTE | 2017-09-14 11:59 | RAD ---
HISTORY: SOB COMPARISON: Chest x-ray performed 09/06/15 TECHNIQUE: Chest PA and lateral FINDINGS: LUNGS: No focal consolidation. Please note that chest x-ray has limited sensitivity for the detection of pulmonary masses. PLEURA: No significant pleural effusion identified. No definite pneumothorax . CARDIOVASCULAR: The cardiomediastinal silhouette appears within normal limits of size. OSSEOUS STRUCTURES: Mild degenerative changes of the spine. VISUALIZED UPPER ABDOMEN: Right upper quadrant surgical clips. OTHER FINDINGS: None. IMPRESSION: No focal consolidation identified.
--- NOTE | 2017-09-14 12:00 | C.PDOC ---
History Of Present Illness 42-year-old female, presents to the emergency department with complaints of palpitations, left sided chest pain, numbness to left hand and foot for the past few hours. Patient denies shortness of breath, lower extremity swelling, nausea/vomiting, dizziness, headache, or any other associated symptoms. No other complaints at this time. Time Seen by Provider: 09/14/17 10:07 Chief Complaint (Nursing): Palpitations History Per: Patient History/Exam Limitations: no limitations Onset/Duration Of Symptoms: Days Current Symptoms Are (Timing): Still Present Severity: Moderate Past Medical History Reviewed: Historical Data, Nursing Documentation, Vital Signs Vital Signs: Last Vital Signs Temp 98.4 F 09/14/17 13:09 Pulse 62 09/14/17 13:09 Resp 18 09/14/17 13:09 BP 114/76 09/14/17 13:09 Pulse Ox 100 09/14/17 13:13 - Medical History PMH: Arthritis, Gastritis, Gall Bladder Disease Surgical History: Cholecystectomy - [facility] Procedures BILAT TUBAL DIVISION NEC (01/12/14) DRAINAGE OF PERITONEAL CAVITY, OPEN APPROACH (12/15/16) LOCAL DESTR OVA LES NEC (01/12/14) LOW CERVICAL (01/12/14) RESECTION OF GALLBLADDER, PERCUTANEOUS ENDOSCOPIC APPROACH (12/15/16) TRANSFUSE NONAUT FROZEN PLASMA IN PERIPH VEIN, PERC (12/15/16) TRANSFUSE NONAUT PLASMA CRYOPRECIP IN PERIPH VEIN, PERC (12/15/16) TRANSFUSE NONAUT RED BLOOD CELLS IN PERIPH VEIN, PERC (12/15/16) Family History: States: No Known Family Hx - Social History Hx Tobacco Use: No Hx Alcohol Use: No Hx Substance Use: No - Immunization History Hx Tetanus Toxoid Vaccination: No Hx Influenza Vaccination: Yes Hx Pneumococcal Vaccination: No Review Of Systems Except As Marked, All Systems Reviewed And Found Negative. Constitutional: Negative for: Fever Cardiovascular: Positive for: Chest Pain Respiratory: Negative for: Shortness of Breath Gastrointestinal: Negative for: Nausea, Vomiting Musculoskeletal: Negative for: Neck Pain, Back Pain Skin: Negative for: Rash Neurological: Positive for: Numbness. Negative for: Weakness, Headache, Dizziness Physical Exam - Physical Exam Appears: Non-toxic, No Acute Distress Skin: Normal Color, Warm, Dry, No Diaphoretic, No Rash Head: Normacephalic Eye(s): bilateral: PERRL, EOMI Nose: Normal Oral Mucosa: Moist Lips: Normal Appearing Neck: Normal ROM Chest: Tenderness (reproducible. left sided) Cardiovascular: Rhythm Regular, No Murmur Respiratory: Normal Breath Sounds Gastrointestinal/Abdominal: Soft, No Tenderness Extremity: Normal ROM, No Pedal Edema, No Calf Tenderness, Capillary Refill (<2 seconds), No Deformity, No Swelling Pulses: Left Radial: Normal, Right Radial: Normal, Left Dorsalis Pedis: Normal, Right Dorsalis Pedis: Normal Neurological/Psych: Oriented x3, Normal Speech, Normal Cognition, Normal Motor, Normal Sensation, Other (No focal deficit) ED Course And Treatment - Laboratory Results Result Diagrams: 09/14/17 12:08 09/14/17 12:08 Lab Interpretation: Normal Urine POC: Negative ECG: Interpreted By Me ECG Rhythm: Sinus Rhythm ECG Interpretation: No Acute Changes Rate From EC O2 Sat by Pulse Oximetry: 100 (RA) Pulse Ox Interpretation: Normal - Radiology CXR: Interpreted by Me CXR Interpretation: Yes: No Acute Disease Progress Note: CT Head, EKG, Bloodwork and UA ordered and reviewed. Patient treated with Toradol. On re-evaluation lungs clear feeling better. In no distress Reassessment Condition: Improved Disposition Counseled Patient/Family Regarding: Studies Performed, Diagnosis, Need For Followup, Rx Given - Disposition [facility] [[facility] [Outside] Disposition: HOME/ ROUTINE Disposition Time: 13:15 Condition: STABLE Additional Instructions: Return to ED if any increase symptoms Prescriptions: Naproxen [Naprosyn] 1 tab PO BID PRN #25 tab PRN Reason: Pain Instructions: Costochondritis Forms: [facility] (Divehi) - POA Present On Arrival: None - Clinical Impression Clinical Impression: Palpitations, Chest discomfort - Scribe Statement The provider has reviewed the documentation as recorded by the Scribe (Jelena Reese) All medical record entries made by the Scribe were at my direction and personally dictated by me. I have reviewed the chart and agree that the record accurately reflects my personal performance of the history, physical exam, medical decision making, and the department course for this patient. I have also personally directed, reviewed, and agree with the discharge instructions and disposition.
[2017-09-14 12:22] LABS: BASO # 0.1 K/uL (0.0-0.2); BASO % 0.9 % (0.0-2.0); EOS # 0.2 K/uL (0.0-0.7); EOS % 2.1 % (0.0-4.0); LYMPH # 3.2 K/uL (1.0-4.3); LYMPH % 39.6 % (20.0-40.0); MEAN CELL VOLUME 90.8 fL (81.0-99.0); MEAN CORPUSCULAR HEMOGLOBIN 31.3 pg (27.0-31.0); MEAN CORPUSCULAR HGB CONC 34.4 g/dL (33.0-37.0); MEAN PLATELET VOLUME 7.8 fL (7.2-11.7); MONO # 0.5 K/uL (0.0-0.8); MONO % 6.2 % (0.0-10.0); NEUT # 4.1 K/uL (1.8-7.0); NEUT % 51.2 % (50.0-75.0); RBC 3.99 Mil/uL (3.80-5.20); RED CELL DISTRIBUTION WIDTH 14.4 % (11.5-14.5)
[2017-09-14 12:26] LABS: HCG,QUALITATIVE URINE NEGATIVE (NEGATIVE)
[2017-09-14 12:27] LABS: HEMOGLOBIN 12.5 g/dL (11.0-16.0)
[2017-09-14 12:37] LABS: SQUAMOUS EPITHIAL 4 /hpf (0-5); URINE BILIRUBIN NEGATIVE (NEGATIVE); URINE BLOOD NEGATIVE (NEGATIVE); URINE CLARITY Clear (Clear); URINE COLOR Yellow (YELLOW); URINE GLUCOSE (UA) NORMAL (Normal); URINE LEUKOCYTE ESTERASE NEG Leu/uL (Negative); URINE NITRATE NEGATIVE (NEGATIVE); URINE PROTEIN NEGATIVE (NEGATIVE); URINE UROBILINOGEN NORMAL mg/dL (0.2-1.0)
[2017-09-14 12:41] LABS: ALBUMIN 3.7 g/dL (3.5-5.0); ALT/SGPT 18 U/L (9-52); AST/SGOT 21 U/L (14-36); BLOOD UREA NITROGEN 14 mg/dL (7-17); GFR AFRICAN-AMERICAN > 60; GFR NON-AFRICAN AMERICAN > 60
[2017-09-14 13:10] VITALS: BP 114/76; PULSE 62; TEMP 98.4
--- NOTE | 2017-09-16 12:42 | CARD ---
APPROVED REPORT EKG Measurement Heart [id number] <Conclusion> Normal sinus rhythm Nonspecific ST abnormality Abnormal ECG
== END 2017-09-14 13:27 | disposition home or self-care (01) ==
LOC: C.ER 09:37
DX: R00.2 Palpitations (principal); R07.89 Other chest pain

== ENCOUNTER 2018-09-04 07:30 | Emergency (ER) | payer MEDICAID ==
[2018-09-04 07:30] VITALS: BMI 35.3
[2018-09-04 07:49] VITALS: BP 101/57; PULSE 69; RESP 14; TEMP 98.5; O2SAT 99
--- NOTE | 2018-09-04 07:52 | C.PDOC ---
Time Seen by Provider: 09/04/18 07:37 Chief Complaint (Nursing): Chest Pain Past Medical History - Medical History PMH: Arthritis, Gastritis, Gall Bladder Disease Surgical History: Cholecystectomy - [facility] Procedures BILAT TUBAL DIVISION NEC (01/12/14) DRAINAGE OF PERITONEAL CAVITY, OPEN APPROACH (12/15/16) LOCAL DESTR OVA LES NEC (01/12/14) LOW CERVICAL (01/12/14) RESECTION OF GALLBLADDER, PERCUTANEOUS ENDOSCOPIC APPROACH (12/15/16) TRANSFUSE NONAUT FROZEN PLASMA IN PERIPH VEIN, PERC (12/15/16) TRANSFUSE NONAUT PLASMA CRYOPRECIP IN PERIPH VEIN, PERC (12/15/16) TRANSFUSE NONAUT RED BLOOD CELLS IN PERIPH VEIN, PERC (12/15/16) Family History: States: Unknown Family Hx - Social History Hx Tobacco Use: No Hx Alcohol Use: No Hx Substance Use: No - Immunization History Hx Tetanus Toxoid Vaccination: No Hx Influenza Vaccination: Yes Hx Pneumococcal Vaccination: No Disposition - Disposition
--- NOTE | 2018-09-04 08:03 | C.PDOC ---
History Of Present Illness 43 y/o female with hx arthritis c/o bilateral neck pain and bilateral chest pain, left more than right, that started last night. pain is worse with movement. no sob, cough. fever or chills. no numbness or tingling. pt works as a spa coordinator. Time Seen by Provider: 09/04/18 07:37 Chief Complaint (Nursing): Chest Pain History Per: Patient History/Exam Limitations: no limitations Onset/Duration Of Symptoms: Days (1) Current Symptoms Are (Timing): Still Present Severity: Moderate Quality: "Pain" Associated Symptoms: denies: Nausea, Dyspnea, Diaphoresis, Syncope Exacerbating Factors: Movement Past Medical History Reviewed: Historical Data, Nursing Documentation, Vital Signs Vital Signs: Last Vital Signs Temp 98.5 F 09/04/18 07:38 Pulse 69 09/04/18 07:38 Resp 14 09/04/18 07:38 BP 101/57 L 09/04/18 07:38 Pulse Ox 99 09/04/18 07:38 - Medical History PMH: Arthritis, Gastritis, Gall Bladder Disease Surgical History: Cholecystectomy - [facility] Procedures BILAT TUBAL DIVISION NEC (01/12/14) DRAINAGE OF PERITONEAL CAVITY, OPEN APPROACH (12/15/16) LOCAL DESTR OVA LES NEC (01/12/14) LOW CERVICAL (01/12/14) RESECTION OF GALLBLADDER, PERCUTANEOUS ENDOSCOPIC APPROACH (12/15/16) TRANSFUSE NONAUT FROZEN PLASMA IN PERIPH VEIN, PERC (12/15/16) TRANSFUSE NONAUT PLASMA CRYOPRECIP IN PERIPH VEIN, PERC (12/15/16) TRANSFUSE NONAUT RED BLOOD CELLS IN PERIPH VEIN, PERC (12/15/16) Family History: States: Unknown Family Hx - Social History Hx Tobacco Use: No Hx Alcohol Use: No Hx Substance Use: No - Immunization History Hx Tetanus Toxoid Vaccination: No Hx Influenza Vaccination: Yes Hx Pneumococcal Vaccination: No Review Of Systems Constitutional: Negative for: Fever, Chills ENT: Negative for: Throat Pain Cardiovascular: Positive for: Chest Pain (bilateral chest) Respiratory: Negative for: Cough, Shortness of Breath Gastrointestinal: Negative for: Nausea, Vomiting, Abdominal Pain Skin: Negative for: Rash Neurological: Negative for: Weakness, Numbness Physical Exam - Physical Exam Appears: Non-toxic, No Acute Distress Skin: Warm, Dry Head: Atraumatic, Normacephalic Eye(s): bilateral: Normal Inspection, PERRL Oral Mucosa: Moist Neck: No Midline Cervical Tenderness, Paracervical Tenderness (bilateral, bilateral trapezius tenderness, left more than right), Supple Chest: Symmetrical, No Deformity, Tenderness (bilateral chest wall tenderness with palpation) Cardiovascular: Rhythm Regular, No Murmur Respiratory: No Decreased Breath Sounds, No Rales, No Rhonchi, No Wheezing Gastrointestinal/Abdominal: Bowel Sounds, Soft, No Tenderness Extremity: Normal ROM, No Tenderness Pulses: Left Radial: Normal, Right Radial: Normal Neurological/Psych: Oriented x3, Normal Speech, Normal Cognition, Normal Cranial Nerves, Normal Motor, Normal Sensation ED Course And Treatment ECG: Interpreted By Me, Viewed By Me ECG Rhythm: Sinus Rhythm Rate From EC O2 Sat by Pulse Oximetry: 99 Medical Decision Making Medical Decision Makin43 y/o female with reproducible bilateral chest wall and trapezius tenderness; ekg, upreg, toradol. 0906 pt reports decreased pain after toradol; will apply lidoderm patch and d/c with muscle relaxant Disposition Counseled Patient/Family Regarding: Studies Performed, Rx Given - Disposition Referrals: Solange Waite MD [Medical Doctor] - Disposition: HOME/ ROUTINE Disposition Time: 09:26 Condition: IMPROVED Additional Instructions: Retire los parches de los hombros a las 9 pm de esta noche. [place] el naproxeno segn lo prescrito, con comida. Afshan relajante muscular cuando ests en casa hasta 3 veces al da, te da sueo. No maneje ni opere maquinaria al jackie esto. Si vas a trabajar, tmate solo a la hora de dormir. Siga con draper mdico en 1-2 hubbard. Regreso por cualquier sntoma peor. Remove patches from shoulders at 9 pm tonight. Take naproxen as prescribed- with food. Take muscle relaxant when at home up to 3 times a day, makes you sleepy. No driving or operating machinery when taking this. If going to work, take at bedtime only. Follow u pwith your doctor in 1-2 days. Return for any worse symptoms. Prescriptions: Cyclobenzaprine [Cyclobenzaprine HCl] 10 mg PO Q8 #9 tab Naproxen 500 mg PO BID #20 tab Instructions: Muscle Strain (DC) Forms: [facility] Moz[place]ican, [facility] (Mozambican), Work Excuse - Clinical Impression Clinical Impression: Muscle strain of anterior chest wall, Trapezius muscle strain
[2018-09-04] MEDS ORDERED: Lidocaine 5% Patch TD STA (09:05)
[2018-09-04] MEDS ORDERED: Lidocaine 5% Patch TD ONE (09:18)
== END 2018-09-04 09:44 | disposition home or self-care (01) ==
LOC: C.ER 07:30
DX: S29.011A Strain of muscle and tendon of front wall of thorax, initial encounter (principal); S16.1XXA Strain of muscle, fascia and tendon at neck level, initial encounter; X58.XXXA Exposure to other specified factors, initial encounter
CPT/HCPCS: 93005; 96372; 99285; J1885

== ENCOUNTER 2018-10-30 22:12 | Emergency (ER) | payer MEDICAID ==
[2018-10-30 22:13] VITALS: BMI 35.3
[2018-10-30 22:23] VITALS: RESP 16
[2018-10-30] MEDS ORDERED: Sodium Chloride 0.9% 1,000 ML IV ONE (22:53)
--- NOTE | 2018-10-30 22:53 | C.PDOC ---
History Of Present Illness patient presents with abdominal pain, which started yesterday/.Pt has had a cholecystectomy, and states her abdominal pain is the same as before the surgery. No f/c. Time Seen by Provider: 10/30/18 22:52 Chief Complaint (Nursing): Abdominal Pain History Per: Patient History/Exam Limitations: no limitations Onset/Duration Of Symptoms: Hrs Current Symptoms Are (Timing): Still Present Context: Other Severity: Moderate Pain Scale Rating Of: 4 Location Of Pain/Discomfort: RUQ, Epigastric Radiation Of Pain To:: None Quality Of Discomfort: Dull, Aching, Burning Associated Symptoms: Nausea, Vomiting. denies: Fever, Chills Exacerbating Factors: None Alleviating Factors: None Last Bowel Movement: Today Recent travel outside of the [place]: No Additional History Per: Patient Abnormal Vaginal Bleeding: No Past Medical History Reviewed: Historical Data, Nursing Documentation, Vital Signs Vital Signs: Last Vital Signs Temp 98.3 F 10/30/18 22:19 Pulse 64 10/30/18 22:19 Resp 16 10/30/18 22:19 BP 127/81 10/30/18 22:19 Pulse Ox 100 10/30/18 22:19 - Medical History PMH: Arthritis, Gastritis, Gall Bladder Disease Surgical History: Cholecystectomy - [facility] Procedures BILAT TUBAL DIVISION NEC (01/12/14) DRAINAGE OF PERITONEAL CAVITY, OPEN APPROACH (12/15/16) LOCAL DESTR OVA LES NEC (01/12/14) LOW CERVICAL (01/12/14) RESECTION OF GALLBLADDER, PERCUTANEOUS ENDOSCOPIC APPROACH (12/15/16) TRANSFUSE NONAUT FROZEN PLASMA IN PERIPH VEIN, PERC (12/15/16) TRANSFUSE NONAUT PLASMA CRYOPRECIP IN PERIPH VEIN, PERC (12/15/16) TRANSFUSE NONAUT RED BLOOD CELLS IN PERIPH VEIN, PERC (12/15/16) Family History: States: No Known Family Hx - Social History Hx Tobacco Use: No Hx Alcohol Use: No Hx Substance Use: No - Immunization History Hx Tetanus Toxoid Vaccination: No Hx Influenza Vaccination: Yes Hx Pneumococcal Vaccination: No Review Of Systems Constitutional: Negative for: Fever, Chills Cardiovascular: Negative for: Chest Pain Respiratory: Negative for: Shortness of Breath Gastrointestinal: Positive for: Nausea, Vomiting, Abdominal Pain Genitourinary: Negative for: Dysuria Musculoskeletal: Negative for: Back Pain Skin: Negative for: Rash Neurological: Negative for: Weakness Psych: Negative for: Anxiety Physical Exam - Physical Exam Appears: Non-toxic Skin: Warm, Dry Oral Mucosa: Moist Chest: Symmetrical Cardiovascular: Rhythm Regular Respiratory: No Rales, No Rhonchi, No Wheezing Gastrointestinal/Abdominal: Soft, Tenderness (ruq, mid epigastric), No Diste ntion Back: No CVA Tenderness Extremity: Normal ROM Extremity: Bilateral: Atraumatic Neurological/Psych: Oriented x3 Gait: Steady ED Course And Treatment - Laboratory Results Result Diagrams: 10/30/18 23:39 10/30/18 23:39 O2 Sat by Pulse Oximetry: 100 Pulse Ox Interpretation: Normal Reevaluation Time: 01:21 Reassessment Condition: Improved Medical Decision Making Medical Decision Making: Upon provider reevaluation patient is feeling better, is medically stable, and requires no further treatment in the ED at this time. Patient will be discharged home with Rx for macrobid . Counseling was provided and all questions were answered regarding diagnosis and need for follow up withdr richard. There is agreement to discharge plan. Return if symptoms persist or worsen. Disposition Counseled Patient/Family Regarding: Studies Performed, Diagnosis, Need For Followup, Rx Given - Disposition Referrals: Solange Richard MD [Medical Doctor] - Disposition: HOME/ ROUTINE Disposition Time: 22:52 Condition: FAIR Additional Instructions: Please return if symptoms recur Prescriptions: Nitrofurantoin Macrocrystals [Macrobid] 1 cap PO BID #14 cap Instructions: Acute Abdomen (Belly Pain), Adult (DC), Urinary Tract Infection, Adult (DC) Forms: [facility] (Nepali) - Clinical Impression Clinical Impression: Abdominal pain, UTI (urinary tract infection)
[2018-10-30 23:43] LABS: BASO # 0.1 K/uL (0.0-0.2); EOS # 0.3 K/uL (0.0-0.7); EOS % 2.9 % (0.0-4.0); HEMOGLOBIN 13.4 g/dL (11.0-16.0); LYMPH # 3.8 K/uL (1.0-4.3); LYMPH % 42.6 % (20.0-40.0); MEAN CELL VOLUME 95.6 fL (81.0-99.0); MEAN CORPUSCULAR HGB CONC 34.5 g/dL (33.0-37.0); MEAN PLATELET VOLUME 7.8 fL (7.2-11.7); MONO # 0.5 K/uL (0.0-0.8); MONO % 5.9 % (0.0-10.0); NEUT # 4.2 K/uL (1.8-7.0); NEUT % 47.6 % (50.0-75.0); NRBC % 0.1 % (0.0-2.0); RBC 4.07 Mil/uL (3.80-5.20); RED CELL DISTRIBUTION WIDTH 13.5 % (11.5-14.5); WHITE BLOOD COUNT 8.9 K/uL (4.8-10.8)
[2018-10-30 23:57] LABS: ALB/GLOB RATIO 1.2 (1.0-2.1); ALBUMIN 3.9 g/dL (3.5-5.0); ALT/SGPT 9 U/L (9-52); AST/SGOT 21 U/L (14-36); BLOOD UREA NITROGEN 23 mg/dL (7-17); CALCIUM 9.2 mg/dl (8.6-10.4); GFR NON-AFRICAN AMERICAN 60; LIPASE 149 U/L (23-300)
[2018-10-31 00:16] LABS: SQUAMOUS EPITHIAL 9 /hpf (0-5); URINE BILIRUBIN NEGATIVE (NEGATIVE); URINE BLOOD 3+ (NEGATIVE); URINE CLARITY Hazy (Clear); URINE COLOR Red (YELLOW); URINE GLUCOSE (UA) NORMAL (Normal); URINE LEUKOCYTE ESTERASE 1+ Leu/uL (Negative); URINE PROTEIN 1+ mg/dL (NEGATIVE); URINE UROBILINOGEN NORMAL mg/dL (0.2-1.0)
[2018-10-31 00:17] LABS: HCG,QUALITATIVE URINE NEGATIVE (NEGATIVE)
[2018-10-31 02:13] VITALS: BP 102/53; PULSE 65; TEMP 98; O2SAT 99
== END 2018-10-31 02:13 | disposition home or self-care (01) ==
LOC: C.ER 22:12
DX: N39.0 Urinary tract infection, site not specified (principal); R10.11 Right upper quadrant pain
CPT/HCPCS: 80053; 81001; 83690; 84703; 85025; 96361; 96374; 96375; 99284; J2405; J7030

== ENCOUNTER 2018-11-01 10:38 | Emergency (ER) | payer MEDICAID ==
[2018-11-01 10:38] VITALS: BMI 35.3
[2018-11-01 10:58] VITALS: TEMP 98.3
[2018-11-01] MEDS ORDERED: DiphenhydrAMINE 50 mg/ml Inj IVP STA (11:17)
[2018-11-01] MEDS ORDERED: Sodium Chloride 0.9% 1,000 ML IV STA (11:17)
--- NOTE | 2018-11-01 11:21 | C.PDOC ---
History Of Present Illness 43-year-old female presents to the ED for evaluation of a headache which began 3 days ago. Patient states her headache is left-sided, severe and describes it as a prickly needle-like sensation. Patient report associated nausea and photophobia. Patient reports experiencing similar headache ten years ago, and symptoms were diagnosed as a migraine. Patient denies fever, chills, neck stiffness, vomiting or recent trauma. Time Seen by Provider: 11/01/18 10:59 Chief Complaint (Nursing): Headache History Per: Patient History/Exam Limitations: no limitations Onset/Duration Of Symptoms: Days (3) Current Symptoms Are (Timing): Still Present Severity: Severe Quality: Aching, "Pain" Associated Symptoms: Photophobia, Nausea. denies: Vomiting Additional History Per: Patient Past Medical History Reviewed: Historical Data, Nursing Documentation, Vital Signs Vital Signs: Last Vital Signs Temp 98.3 F 11/01/18 10:56 Pulse 70 11/01/18 10:56 Resp 20 11/01/18 10:56 BP 136/82 11/01/18 10:56 Pulse Ox 99 11/01/18 10:56 - Medical History PMH: Arthritis, Gastritis, Gall Bladder Disease, Migraine Surgical History: Cholecystectomy - [facility] Procedures BILAT TUBAL DIVISION NEC (01/12/14) DRAINAGE OF PERITONEAL CAVITY, OPEN APPROACH (12/15/16) LOCAL DESTR OVA LES NEC (01/12/14) LOW CERVICAL (01/12/14) RESECTION OF GALLBLADDER, PERCUTANEOUS ENDOSCOPIC APPROACH (12/15/16) TRANSFUSE NONAUT FROZEN PLASMA IN PERIPH VEIN, PERC (12/15/16) TRANSFUSE NONAUT PLASMA CRYOPRECIP IN PERIPH VEIN, PERC (12/15/16) TRANSFUSE NONAUT RED BLOOD CELLS IN PERIPH VEIN, PERC (12/15/16) Family History: States: Unknown Family Hx - Social History Hx Tobacco Use: No Hx Alcohol Use: No Hx Substance Use: No - Immunization History Hx Tetanus Toxoid Vaccination: No Hx Influenza Vaccination: Yes Hx Pneumococcal Vaccination: No Review Of Systems Except As Marked, All Systems Reviewed And Found Negative. Constitutional: Negative for: Fever Gastrointestinal: Negative for: Vomiting Physical Exam - Physical Exam Additional Physical Exam Comments: Constitutional: No acute distress. Lying on stretcher with lights off and eyes closed. Head: Normocephalic. Atraumatic. Eyes: PERRL. ENT: Moist mucous membranes. Neck: Supple. No nuchal rigidity. Cardiovascular: Regular rate. Radial pulse 2+ bilaterally. Chest: No tenderness. Musculoskeletal: No tenderness or swelling of extremities. Skin: No rash. Neurologic: Alert, no focal deficit. ED Course And Treatment O2 Sat by Pulse Oximetry: 99 (on RA) Pulse Ox Interpretation: Normal Medical Decision Making Medical Decision Making: Progress: Benadryl IVP, Toradol IVP, Reglan IVP, Tylenol PO, and IV fluids given. Patient feels much better after treatment. Disposition - Disposition Referrals: [facility] [Outside] Coral Looney MD [Staff Provider] - Disposition: HOME/ ROUTINE Disposition Time: 13:46 Condition: GOOD Prescriptions: Acetaminophen [Tylenol 325mg tab] 2 tab PO Q4H #30 tab DiphenhydrAMINE [Benadryl] 2 cap PO Q8 #25 cap Ibuprofen [Motrin] 1 tab PO Q6 #30 tab Metoclopramide [Reglan] 10 mg PO Q8H #6 tab Instructions: Migraine Headache (DC) Forms: [facility] (Bengali) - Clinical Impression Clinical Impression: Headache - Scribe Statement The provider has reviewed the documentation as recorded by the Scribe (Eneida Walton) Provider Attestation: All medical record entries made by the Scribe were at my direction and personally dictated by me. I have reviewed the chart and agree that the record accurately reflects my personal performance of the history, physical exam, medical decision making, and the department course for this patient. I have also personally directed, reviewed, and agree with the discharge instructions and disposition.
[2018-11-01] MEDS ORDERED: Sodium Chloride 0.9% 1,000 ML ONE (11:30)
[2018-11-01] MEDS ORDERED: DiphenhydrAMINE 50 mg/ml Inj ONE (11:31)
[2018-11-01 13:22] VITALS: BP 112/73; PULSE 60; RESP 18
[2018-11-01 13:48] VITALS: O2SAT 99
== END 2018-11-01 13:56 | disposition home or self-care (01) ==
LOC: C.ER 10:38
DX: R51 Headache (principal)
CPT/HCPCS: 81025; 96361; 96374; 96375; 99284; J1200; J1885; J2765; J7030